=== PATIENT | male | born 1935 | race Caucasian/White ===

== ENCOUNTER 2018-01-08 12:18 | Inpatient (IN) | payer MEDICARE ==
--- NOTE | 2018-01-08 12:55 | ED ---
Abdominal Pain/Male - HPI Summary HPI Summary: This is bob Chadwick documenting for attending Harshad Mejia MD. This patient is a 82 year old M presenting to [facility] accompanied by two women with a chief complaint of worsening abd pain that started yesterday at 10:00AM. The patient rates the pain 4/10 in severity. Patient reports nausea, vomiting, back pain, and less frequent BM. Patient denies CP, diarrhea, excess flatulence , GARCIA, cough, or rhinorrhea. Pts family reports that he had an experimental surgery a year ago where they put a graft inside his aorta, and if it leaks it causes many of the symptoms he is currently having. Pt normally has a hernia binder, but he has not used it for the past 3 days. Pt reports he usually has back pain when lying down. A woman in the pts home recently traveled to [place]. PMHX multiple hernias, AAA, diverticulitis, left eye blindness. Latex allergy. Pt was born with one working kidney, the other is present. - History of Current Complaint Chief Complaint: EDAbdPain Stated Complaint: ABD PAIN Time Seen by Provider: 01/08/18 12:39 Hx Obtained From: Patient, Family/Pharmaceutical Operator Onset/Duration: Sudden Onset, Lasting Days - 2 Timing: Constant Severity Initially: Moderate Severity Currently: Moderate Pain Intensity: 4 Pain Scale Used: 0-10 Numeric Location: Diffuse Aggravating Factor(s): Other: - lying down Alleviating Factor(s): Position Associated Signs And Symptoms: Positive: Back Pain, Nausea, Vomiting. Negative : Cough, Chest Pain, Diarrhea - Allergies/Home Medications Allergies/Adverse Reactions: Allergies Allergy/AdvReac Type Severity Reaction Status Date / Time latex Allergy Rash Verified 01/08/18 14:59 Home Medications: Home Medications Aspirin EC TAB* [Ecotrin EC Low Dose 81 MG*] 81 mg PO MOWEFR 01/08/18 [History Confirmed 01/08/18] Atorvastatin* [Lipitor*] 80 mg PO DAILY 01/08/18 [History Confirmed 01/08/18] Digoxin TAB* [Lanoxin TAB*] 0.125 mg PO DAILY 01/08/18 [History Confirmed ] Furosemide TAB* [Lasix TAB*] 20 mg PO DAILY 01/08/18 [History Confirmed 01/08/18 ] Gabapentin TAB(NF) [Neurontin 600 mg TAB(NF)] 1,200 mg PO DAILY 01/08/18 [ History Confirmed 01/08/18] Ketoconazole 2 % TOPICAL DAILY 01/08/18 [History Confirmed 01/08/18] dilTIAZem HCl [Diltiazem 24Hr ER] 180 mg PO DAILY 01/08/18 [History Confirmed ] PMH/Surg Hx/FS Hx/Imm Hx Endocrine/Hematology History: Denies: Hx Diabetes, Hx Thyroid Disease Cardiovascular History: Reports: Hx Hypertension - ON MEDICATION, Hx Pacemaker/ ICD, Other Cardiovascular Problems/Disorders - A-fib, pacemaker Respiratory History: Reports: Hx Chronic Obstructive Pulmonary Disease (COPD) - Emphyzema, Hx Sleep Apnea - EARLY , Other Respiratory Problems/Disorders - EMPHYSEMA Denies: Hx Asthma GI History: Reports: Hx Diverticulosis, Other GI Disorders - diverticulitis Denies: Hx Ulcer History: Reports: Other Problems/Disorders - RIGHT KIDNEY ONLY FUNCTIONINGT KIDNEY Musculoskeletal History: Reports: Hx Arthritis - BILATERAL FEET AND HAND Sensory History: Reports: Hx Cataracts, Hx Contacts or Glasses - GLASSES Denies: Hx Hearing Aid Opthamlomology History: Reports: Hx Cataracts, Hx Contacts or Glasses - GLASSES Neurological History: Reports: Hx Migraine - AGE 18, Hx Transient Ischemic Attacks (TIA) - 6216-1213 - Cancer History Cancer Type, 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 AAA REPAIR. Hx Anesthesia Reactions: No - Immunization History Date of Tetanus Vaccine: Unk Date of Influenza Vaccine: Fall 2013 Infectious Disease History: No Infectious Disease History: Denies: Hx Hepatitis, Hx Human Immunodeficiency Virus (HIV), Hx Shingles, Hx Tuberculosis, History Other Infectious Disease, Traveled Outside the [place] in Last 30 Days - Family History Known Family History: Positive: Renal Disease - one kidney - Social History Alcohol Use: None Alcohol Amount: WINE Hx Substance Use: No Substance Use Type: Reports: None Hx Tobacco Use: No - quit 20 yrs ago, smoked 3ppd for 45 yrs Smoking Status (MU): Former Smoker Type: Cigarettes Review of Systems Negative: Nasal Discharge Negative: Chest Pain Negative: Cough Positive: Abdominal Pain - diffuse, Vomiting, Nausea. Negative: Diarrhea Positive: Other - back pain Negative: Headache All Other Systems Reviewed And Are Negative: Yes Physical Exam - Summary Physical Exam Summary: Appearance: Well-appearing, Well-nourished. Skin: Warm, dry, no obvious rash Eyes: sclera anicteric, no conjunctival pallor ENT: mucous membranes moist, pharynx appears normal Neck: Supple, nontender Respiratory: Clear to auscultation, no signs of respiratory distress Cardiovascular: Normal S1, S2. No murmurs. Normal distal pulses in tibial and radial bilaterally. Abdomen: Soft, normal active bowel sounds present. Generalized tenderness. Large ventral hernias on the left side. Musculoskeletal: Normal, Strength/ROM Intact Neurological: A&Ox3, awake and alert, mentation is normal, speech is fluent and appropriate Psychiatric: affect is normal, does not appear anxious or depressed Triage Information Reviewed: Yes Vital Signs On Initial Exam: Initial Vitals Temp Pulse Resp BP Pulse Ox 98 F 94 20 162/100 96 01/08/18 12:23 01/08/18 12:23 01/08/18 12:23 01/08/18 12:23 01/08/18 12:23 Vital Signs Reviewed: Yes Diagnostics - Vital Signs Vital Signs Temp Pulse Resp BP Pulse Ox 01/08/18 12:23 98 F 94 20 162/100 96 - Laboratory Result Diagrams: 01/08/18 13:14 01/08/18 14:23 Lab Statement: Any lab studies that have been ordered have been reviewed, and results considered in the medical decision making process. - CT CTA Chest/Abd/Pel CT Interpretation Completed By: Radiologist - 1. Abdominal aortic aneurysm measuring 5.2 x 5.9 cm in maximum axial dimension, not significantly changed since the most recent CT examination dated July 06, 2015. In the interval the patient has undergone endograft stent placement. Considering differences in technique from the preoperative CT examination this appears to be stable. There is no definite evidence of endoleak. 2. Pathologically dilated loops of proximal small bowel measuring up to 4 cm in diameter with appearance of fecalization of the intraluminal contents. There is a midline abdominal hernia containing peritoneal fat. At the time of image acquisition there is no bowel extending into the hernia but this could be reduced at the time of image acquisition in the supine position. Please correlate to physical exam findings of a reducible hernia. 3. Additional chronic, degenerative and iatrogenic findings described in the body the report. ED Physician reviewed this report - EKG 12:54 Cardiac Rate: Bradycardia EKG Rhythm: Atrial Fibrillation - 111 bpm EKG Interpretation: inferior Q waves, no ischemic changes Abdominal Pain Fem Course/Dx - Diagnoses Provider Diagnoses: Small bowel obstruction - Provider Notifications Discussed Care Of Patient With: Zeinab Foy Time Discussed With Above Provider: 16:15 Instructed by Provider To: Admit As Inpatient Discharge - Sign-Out/Discharge Documenting (check all that apply): Patient Departure - Discharge Plan Condition: Stable Disposition: ADMITTED TO [facility] - Billing Disposition and Condition Condition: STABLE Disposition: Admitted to [facility]
[2018-01-08 13:32] LABS: ABS Basophils 0.1 10^3/ul (0-0.2); ABS Eosinophils 0.1 10^3/ul (0-0.6); ABS Lymphocytes 0.6 10^3/ul (1.0-4.8); ABS Monocytes 0.6 10^3/ul (0-0.8); ABS Neutrophils 8.4 10^3/ul (1.5-7.7); ABS Nucleated RBC 0 10^3/ul; Eosinophil % 0.6 % (0-6); Hematocrit 54 % (42-52); Hemoglobin 18.5 g/dl (14.0-18.0); Mean Corpuscular HGB Conc 35 g/dl (31-36); Mean Corpuscular Hemoglobin 32 pg (27-31); Mean Corpuscular Volume 92 fL (80-94); Mean Platelet Volume 10.1 um3 (7.4-10.4); Nucleated Red Blood Cells % 0.1; Platelet Count 166 10^3/ul (150-450); Red Blood Count 5.82 10^6/ul (4.00-5.40); Red Cell Distribution Width 16 % (10.5-15); White Blood Count 9.8 10^3/ul (3.5-10.8)
[2018-01-08 13:51] LABS: EGFR Non-African American 46.7 (>60)
[2018-01-08] MEDS ORDERED: Iodixanol* (CONTRAST) 320 MG/ML 100 ML SDV IV ONE (14:04)
[2018-01-08] MEDS ORDERED: NS 0.9% 1000 ML* 1,000 ML IV ONE (14:06)
[2018-01-08] MEDS ORDERED: Acetaminophen TAB* 325 MG PO ONE (14:44)
--- NOTE | 2018-01-08 15:44 | RAD ---
STUDY: CT angiography of the chest, abdomen and pelvis. INDICATION: Abdominal pain in a patient with a history of abdominal aortic stent graft and sigmoidectomy. COMPARISON: CT of the abdomen and pelvis dated July 06, 2015 TECHNIQUE: Multidetector CT angiography of the chest, abdomen and pelvis were obtained from the lung apices to the ischial tuberosities after the intravenous injection of 100 mL. Reformats were created in the coronal and sagittal planes. 3-D vascular imaging was created from the source images and reviewed as well. ANGIOGRAPHIC FINDINGS: There is calcification of the coronary arteries and aortic ring. Measure the level of the right mainstem pulmonary artery, the ascending aorta measures 4 x 4.4 cm in the axial plane and the descending thoracic aorta measures 3.2 x 3.6 cm in the axial plane. There is curvature due to uncoiling in the thoracic aorta. There is mixed attenuation atherosclerosis at the arch of the aorta causing approximately 50% degree stenosis at the left subclavian artery. There is an aortic stent graft that begins above the level of the radha of the diaphragm. This extends into bilateral common iliac stents. The patient's infrarenal abdominal aortic aneurysm measures 5.2 x 5.8 cm and greatest axial dimension. On the most recent CT examination the aneurysm measures 5.4 x 5.7 cm. There are stents seen at the superior mesenteric artery and right renal artery that appear to be patent. The patient appears to be status post right common femoral endarterectomy as there is interval decrease in the degree of calcified atherosclerosis compared to the previous CT examination. 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 NON ANGIOGRAPHIC FINDINGS: Chest: The lungs are clear. There are no large pleural effusions. There is no mediastinal or hilar lymphadenopathy. The heart is grossly normal in appearance. Abdomen & Pelvis: The liver, spleen, pancreas and adrenal glands are grossly normal in appearance. The gallbladder is normal. The right kidney is normal in appearance without focal mass, calcification or signs of hydronephrosis. The left kidney is atrophic. In the left hemiabdomen there is multiple loops of dilated small bowel exhibiting air-fluid levels measuring up to 4.2 cm in diameter (coronal image 45 and axial image 179). There is fecalization of the small bowel contents at these areas of dilatation. More distally there is gas and stool seen throughout the colon. There are innumerable distal colonic diverticula but none exhibit focal inflammatory change characteristic of diverticulitis. Surgical material is seen at the sigmoid colon consistent with the patient's reported history. There is a midline abdominal hernia that contains peritoneal fat at the time of image acquisition but there are loops of bowel abutting the hernia. There is no small or large bowel herniation at the time of image acquisition. There is no gross retroperitoneal or mesenteric lymphadenopathy. The pelvic viscera is normal in appearance. Multilevel degenerative changes of the thoracic and lumbar spine include loss of intervertebral disc height.There are no sinister bone lesions. IMPRESSION: 1. Abdominal aortic aneurysm measuring 5.2 x 5.9 cm in maximum axial dimension, not significantly changed since the most recent CT examination dated July 06, 2015. In the interval the patient has undergone endograft stent placement. Considering differences in technique from the preoperative CT examination this appears to be stable. There is no definite evidence of endoleak. 2. Pathologically dilated loops of proximal small bowel measuring up to 4 cm in diameter with appearance of fecalization of the intraluminal contents. There is a midline abdominal hernia containing peritoneal fat. At the time of image acquisition there is no bowel extending into the hernia but this could be reduced at the time of image acquisition in the supine position. Please correlate to physical exam findings of a reducible hernia. 3. Additional chronic, degenerative and iatrogenic findings described in the body the report.
[2018-01-08] MEDS ORDERED: NS 0.9% 1000 ML* 2,000 ML IV ONE (16:17)
--- NOTE | 2018-01-08 17:31 | RAD ---
INDICATION: Nasogastric tube placement COMPARISON: Most recent comparison chest x-rays dated January 04, 2015 TECHNIQUE: Single AP portable view of the chest was obtained. FINDINGS: Image quality is compromised due to the relative inferiority of a portable chest x-ray. Stable postsurgical changes include a right upper chest cardiac pacemaker with 2 leads overlying the heart and partially visualized abdominal aortic stent graft. There is been interval placement of a gastric tube overlying the midline mediastinum with the tip terminating overlying the gastric fundus. There is calcification overlying the arch of the aorta similar appearance to the prior chest x-ray. The lungs are grossly clear. There is no evidence of a large pleural effusion. Visualized bones are normal for the patient's age. IMPRESSION: Interval placement of a nasogastric tube with the tip overlying the air-filled gastric fundus.
[2018-01-08] MEDS: Digoxin IV* 0.5 MG/2 ML AMP (0.25 MG/ML) IV SLOW PU SCH (18:22)
[2018-01-08] MEDS: Diltiazem DRIP* 100 MG/100 ML ADDV.BAG IVPB SCH (18:44)
[2018-01-08] MEDS: NS 0.9% 1000 ML* 1,000 ML IV SCH (20:39)
[2018-01-08] MEDS ORDERED: hydrALAZINE IV* 20 MG/ML VIAL IV SLOW PU PRN (21:55)
[2018-01-08] MEDS: Heparin VIAL(*) 5000 UNITS/ML VIAL (FIVE THOUSAND) SUBCUT SCH (22:09)
--- NOTE | 2018-01-08 22:28 | HP ---
CC: Dr. Iliana Malcolm * HISTORY AND PHYSICAL: DATE OF ADMISSION: 01/08/18 PRIMARY CARE PROVIDER: Dr. Iliana Malcolm. ATTENDING PHYSICIAN: Dr. Zeinab Foy * (dictated by Reina Martin NP). CHIEF COMPLAINT: Abdominal pain. HISTORY OF PRESENT ILLNESS: Mr. Alfaro is an 82-year-old male with past medical history significant for paroxysmal atrial fibrillation, hypertension, diverticulosis, hyperlipidemia, COPD, neuropathy, chronic diastolic heart failure, chronic kidney disease stage 3, left eye blindness, embolic CVA and history of bladder cancer treated with BCG treatments, who states that he was in his usual state of health when yesterday morning, he developed abdominal pain. This was accompanied by nausea, vomiting, back pain, and decrease in bowel movements. The patient states he moved his bowels yesterday morning and has not passed flatus in 1 day. He states that he was able to eat breakfast this morning as the abdominal discomfort was not enough to cause him not to eat and he ate and drank yesterday. He denies any fevers, chills, chest pain, palpitations. He reports that his abdominal pain started as a dull pain and moved to a sharp pain. He reports vomiting bile. He denies any urinary symptoms, dizziness, or lightheadedness. Due to his symptoms, he presented to the emergency room for further evaluation of symptoms. While in the emergency room, he received Tylenol, 1 L of saline. He had a chest , abdomen, and pelvis CTA as his family was told to be on the watch out for these symptoms after his history of aortic stent graft, showing pathologically dilated loops of proximal small bowel measuring up to 4 cm in diameter with appearance of fecalization of the intraluminal contents. There is also noted to be a midline abdominal hernia containing peritoneal fat. The patient's abdominal aortic aneurysm measured 5.2 x 5.9 cm, not significantly changed from previous exam here in June 2015. Due to the findings of a small bowel obstruction, general surgery was consulted, who recommended the hospitalists admit the patient due to his significant past medical history and that they would consult on the patient. Hospitalists were asked to evaluate this patient for admission. PAST MEDICAL HISTORY: 1. Atrial fibrillation. 2. TIA. 3. Diverticulosis. 4. Hyperlipidemia. 5. COPD. 6. Chronic diastolic heart failure, the patient's family deny knowledge of this diagnosis. 7. Chronic kidney disease, stage 3. 8. Left eye blindness. 9. Embolic CVA. 10. Bladder cancer with BCG treatment. 11. Neuropathy. PAST SURGICAL HISTORY: 1. Status post colostomy and colostomy reversal. 2. Status post excision of skin lesion to the left buttock. 3. Status post pacemaker insertion. 4. Status post sigmoidectomy. 5. Status post abdominal aortic aneurysm repair. 6. Status post left carotid endarterectomy. 7. Status post right knee arthroplasty. HOME MEDICATIONS: Include: 1. Vitamin B12 1000 mcg oral daily in the evening. 2. Vitamin D 1000 units oral daily in the evening. 3. Aspirin 81 mg oral daily in the evenings on Thursday, Thursday, and Thursday. 4. Diltiazem 180 mg oral daily at bedtime. 5. Neurontin 1200 mg oral daily in the morning. 6. Digoxin 0.125 mg oral daily in the evening. 7. Furosemide 20 mg oral daily in the morning. 8. TriCor 160 mg oral daily in the evening. 9. Ketoconazole 2% topical ointment as needed daily. ALLERGIES: LATEX. FAMILY HISTORY: The patient's mother had a history of CVA and diabetes mellitus. The patient's father passed from emphysema. The patient's half sister had a history of pleurisy. SOCIAL HISTORY: The patient is a former smoker quitting approximately 20 to 25 years ago. Prior to that, he had a 3 pack a day 45 years smoking history. He denies alcohol or recreational drug use. He is retired and lives with his . His daughter, Dorota Alfaro, will be his surrogate decision maker in the event he is unable to make decisions for himself. REVIEW OF SYSTEMS: I performed an 11-point review of systems. All the pertinent positives and negatives are mentioned in the history of present illness. The remaining review of systems are negative. PHYSICAL EXAMINATION GENERAL APPEARANCE: The patient is alert, pleasant and appears to be in no acute distress. VITAL SIGNS: Temperature 98, heart rate 94, respiratory rate 20, O2 sat 96% on room air, blood pressure 162/100. HEENT: Normocephalic, atraumatic. Pupils are equal and reactive to light. Extraocular movements are intact. RESPIRATORY: There is no accessory muscle use. The lungs are clear to auscultation bilateral. CARDIOVASCULAR: Irregular rate and rhythm. S1 and S2 present. There are no murmurs, rubs, or gallops heard. ABDOMEN: Soft, nondistended. There are active bowel sounds. He has generalized tenderness. He has a large ventral hernia near a healed midline incision on the left side of his abdomen. EXTREMITIES: There is no lower extremity edema. DP and PT pulses are 2+ and symmetric. MUSCULOSKELETAL: There is no clubbing or cyanosis noted. The patient exhibits good strength in all extremities. NEUROLOGIC: The patient is alert and oriented x4. Cranial nerves II through XII are grossly intact. PSYCHOLOGICAL: The patient is calm and cooperative. SKIN: There are no rashes or abnormalities seen. DIAGNOSTIC STUDIES/LABORATORY DATA: Sodium 138, potassium 4.4, chloride 100, CO2 of 27, BUN 27, creatinine 1.44, glucose 116. White blood cell count 9.8, hemoglobin 18.5, hematocrit 54, platelet count 116. EKG shows an atrial fibrillation at a rate of 111. He has inferior Q-waves. He has T-wave inversions in V5 and 6, similar to previous EKG from 10/03/14. Chest, abdomen and pelvis CTA from today. Radiologist's impression: Abdominal aortic aneurysm measuring 5.2 x 5.9 cm at the maximal axial dimension, not significantly changed since the most recent CT examination dated 07/06/15. In the interval, the patient has undergone endograft stent placement. Considering differences in the technique from the preoperative CT examination, this appears to be stable. There is no definite evidence of Endoleak. Pathologically dilated loops of proximal small bowel measuring up to 4 cm in diameter with appearance of fecalization of the intraluminal contents. There is a midline abdominal hernia containing peritoneal fat. At the time of the image acquisition, there is no bowel extending into the hernia, but this could be reduced at the time of image acquisition in the supine position. Please correlate to physical exam findings of a reducible hernia. Additional chronic, degenerative, and iatrogenic findings described in the body of the report. Chest x-ray from today. Radiologist's impression: Interval placement of nasogastric tube with the tip overlying the air filled gastric fundus. IMPRESSION: Mr. Alfaro is an 82-year-old male with past medical history significant for atrial fibrillation, transient ischemic attack, diverticulosis, hyperlipidemia, chronic obstructive pulmonary disease, neuropathy, chronic diastolic heart failure, chronic kidney disease stage 3, left eye blindness, embolic CVA, and bladder cancer, who presented to the emergency room with complaints of abdominal pain for 1 day. He will be admitted as an observation for small bowel obstruction and atrial fibrillation with RVR. ASSESSMENT/PLAN: 1. Small bowel obstruction. The patient has evidence on his CTA of a bowel obstruction. He has had an NG tube placed while in the emergency room. We will give IV hydration, monitor him closely with his history of heart failure. General surgery is aware of the patient and will see the patient in consultation. We will continue to have the patient to be n.p.o. and keep him n.p.o. and change his medications to IV if possible. 2. Atrial fibrillation with RVR. During the time in the emergency room, the patient was noted to have a heart rate that was nonsustained up to 150s. We are going to place him on a diltiazem drip at 5 mg an hour as this will be equivalent to his home diltiazem dosing. We can titrate this if needed for increased heart rate and also transitioning his digoxin to IV. He is not currently anticoagulated after a GI bleed in the past. 3. Neuropathy. We will hold the patient's Neurontin until he is able to take p.o. 4. Carotid artery disease. The patient is status post a carotid endarterectomy. I am going to hold his aspirin while he is n.p.o. 5. Chronic diastolic heart failure. I am going to hold the patient's furosemide. He actually looks on the dry side as evidenced by polycythemia. I am going to give him some cautious IV hydration while he is n.p.o. We can consider restarting his furosemide or decreasing the IV fluids if he appears to be overloaded. He has no signs of volume overload at this time. He has no crackles and no lower extremity edema. 6. History of transient ischemic attack and cerebrovascular accident. Again, I am going to hold the patient's aspirin for now and his statins while he is n.p.o. 7. Chronic obstructive pulmonary disease. The patient has no signs of chronic obstructive pulmonary disease exacerbation at this time. He is not on any maintenance medications or as needed medications. 8. Chronic kidney disease, stage 3. The patient appears to be at his baseline creatinine. We will continue to follow his creatinine. 9. Bladder cancer. The patient was treated with BCG in the past. He should continue to follow with Urology outpatient. 10. Fluids, electrolytes, and nutrition: The patient is going to be n.p.o. 11 Code status: Full code. 12. DVT prophylaxis: He is at highest risk, will have subcu heparin and SCDs 13 Disposition: Observation. TIME SPENT: Time for this admission was approximately 60 minutes, greater than half of that was spent with the patient and his family discussing medications, past medical history, the events leading up to his arrival today and performing a physical examination. The case has been reviewed with the attending, Dr. Foy, who agrees with the plan of care. Reviewed by TRICIA AHN 01/13/18 1740 [id number]/[facility] #: [id number] MTDD
[2018-01-08 23:52] LABS: Urine Appearance Clear; Urine Blood Negative (Negative); Urine Color Yellow; Urine Ketones Negative (Negative); Urine Protein 2+(100 mg/dL) (Negative); Urine Red Blood Cell 1+(3-5/hpf) (Absent); Urine Specific Gravity 1.054 (1.010-1.030); Urine Urobilinogen Negative (Negative); Urine White Blood Cell Trace(0-5/hpf) (Absent)
[2018-01-09] MEDS: Heparin VIAL(*) 5000 UNITS/ML VIAL (FIVE THOUSAND) SUBCUT SCH ×3 (05:21→20:55)
[2018-01-09] MEDS ORDERED: PROCHLORPERAZINE INJ 5 MG/ML 2 ML VIAL IV PRN (05:26)
[2018-01-09 05:58] LABS: ABS Basophils 0 10^3/ul (0-0.2); ABS Eosinophils 0 10^3/ul (0-0.6); ABS Lymphocytes 0.7 10^3/ul (1.0-4.8); ABS Monocytes 0.7 10^3/ul (0-0.8); ABS Neutrophils 5.8 10^3/ul (1.5-7.7); ABS Nucleated RBC 0 10^3/ul; Eosinophil % 0.4 % (0-6); Hematocrit 51 % (42-52); Hemoglobin 17.6 g/dl (14.0-18.0); Lymphocyte % 9.1 % (25-47); Mean Corpuscular HGB Conc 34 g/dl (31-36); Mean Corpuscular Hemoglobin 31 pg (27-31); Mean Corpuscular Volume 92 fL (80-94); Mean Platelet Volume 10.1 um3 (7.4-10.4); Nucleated Red Blood Cells % 0.1; Platelet Count 172 10^3/ul (150-450); Red Cell Distribution Width 16 % (10.5-15); White Blood Count 7.2 10^3/ul (3.5-10.8)
[2018-01-09 06:19] LABS: EGFR Non-African American 63.1 (>60)
[2018-01-09] MEDS: NS 0.9% 1000 ML* 1,000 ML IV SCH ×2 (06:42→17:20)
--- NOTE | 2018-01-09 08:07 | PN ---
Subjective Date of Service: 01/09/18 Interval History: Patient seen and examined at bedside. Denies fever, chills, shortness of breath , chest discomfort, N/V/D. Pt states that he was able to pass some flatus overnight, but none since. Since no BM. Pt states that his abdominal pain has improved and has almost resolved. He is asking about eating but understands that he is NPO for now until the NG tube is removed. Tele: Afib, rate 70-80's. Family History: Unchanged from Admission Social History: Unchanged from Admission Past Medical History: Unchanged from Admission Objective Active Medications: Digoxin (Digoxin Iv*) 0.52953 mg IV SLOW PU 1800 NARESH Heparin Sodium (Porcine) (Heparin Vial(*)) 5,000 units SUBCUT Q8HR NARESH Hydralazine HCl (Apresoline Iv*) 5 mg IV SLOW PU Q6H PRN Reason: SBP>170 Sodium Chloride (Ns 0.9% 1000 Ml*) 1,000 mls @ 100 mls/hr IV PER RATE NARESH Diltiazem HCl (Cardizem Iv Advan*) 100 mg in 100 mls @ 5 mls/hr IVPB .PER PARAMETERS NARESH; Protocol Prochlorperazine Edisylate (Compazine Inj*) 5 mg IV Q6H PRN Reason: NAUSEA/ VOMITING Vital Signs - 8 hr 01/09/18 01/09/18 01/09/18 00:04 00:09 00:15 Temperature Pulse Rate 78 78 Respiratory 23 20 Rate Blood Pressure 162/90 151/95 (mmHg) O2 Sat by Pulse 95 94 Oximetry 01/09/18 01/09/18 01/09/18 00:30 00:45 01:00 Temperature Pulse Rate 77 75 77 Respiratory 22 22 22 Rate Blood Pressure 154/105 171/93 167/90 (mmHg) O2 Sat by Pulse 96 95 92 Oximetry 01/09/18 01/09/18 01/09/18 01:15 01:30 01:45 Temperature Pulse Rate 76 80 90 Respiratory 20 18 20 Rate Blood Pressure 152/95 153/101 153/88 (mmHg) O2 Sat by Pulse 93 96 94 Oximetry 01/09/18 01/09/18 01/09/18 02:00 02:15 02:18 Temperature Pulse Rate 78 75 79 Respiratory 21 23 22 Rate Blood Pressure 169/93 159/86 159/86 (mmHg) O2 Sat by Pulse 94 94 94 Oximetry 01/09/18 01/09/18 01/09/18 02:23 02:30 02:45 Temperature 99.5 F Pulse Rate 73 76 Respiratory 22 20 Rate Blood Pressure 171/105 159/89 (mmHg) O2 Sat by Pulse 96 94 Oximetry 01/09/18 01/09/18 01/09/18 02:46 03:00 03:15 Temperature Pulse Rate 81 81 77 Respiratory 18 18 21 Rate Blood Pressure 159/89 155/86 168/87 (mmHg) O2 Sat by Pulse 94 95 95 Oximetry 01/09/18 01/09/18 01/09/18 03:18 03:30 03:40 Temperature 99.7 F Pulse Rate 75 70 Respiratory 17 21 Rate Blood Pressure 168/87 160/102 (mmHg) O2 Sat by Pulse 95 94 Oximetry 01/09/18 01/09/18 01/09/18 03:45 04:00 04:15 Temperature Pulse Rate 74 79 79 Respiratory 20 18 16 Rate Blood Pressure 156/93 166/101 154/104 (mmHg) O2 Sat by Pulse 92 95 95 Oximetry 01/09/18 01/09/18 01/09/18 04:30 04:45 05:00 Temperature Pulse Rate 77 68 78 Respiratory 14 21 18 Rate Blood Pressure 150/95 153/111 172/97 (mmHg) O2 Sat by Pulse 95 95 94 Oximetry 01/09/18 01/09/18 01/09/18 05:15 05:30 05:45 Temperature Pulse Rate 72 87 73 Respiratory 12 18 15 Rate Blood Pressure 156/90 151/104 156/87 (mmHg) O2 Sat by Pulse 95 96 95 Oximetry 01/09/18 01/09/18 01/09/18 06:00 06:01 06:20 Temperature Pulse Rate 88 82 77 Respiratory 19 21 17 Rate Blood Pressure 112/88 164/136 (mmHg) O2 Sat by Pulse 94 94 95 Oximetry 01/09/18 01/09/18 06:30 06:45 Temperature Pulse Rate 75 78 Respiratory 18 19 Rate Blood Pressure 153/90 126/62 (mmHg) O2 Sat by Pulse 96 97 Oximetry Oxygen Devices in Use Now: None Appearance: NAD, laying in bed Ears/Nose/Mouth/Throat: Mucous Membranes Moist Respiratory: Symmetrical Chest Expansion and Respiratory Effort, Clear to Auscultation Cardiovascular: NL Sounds; No Murmurs; No JVD, RRR Abdominal: NL Sounds; No Tenderness; No Distention, - - Ventral hernia to left side of ABD Extremities: No Edema Skin: No Rash or Ulcers Neurological: Alert and Oriented x 3, NL Muscle Strength and Tone Lines/Tubes/Other Access: Clean, Dry and Intact Peripheral IV - x 2, site benign Nutrition: Taking PO's Result Diagrams: 01/09/18 05:29 01/09/18 05:29 Microbiology and Other Data: Microbiology 01/08/18 18:30 Nasal Screen MRSA (PCR) - Final Nasal Mrsa Not Detected Assess/Plan/Problems-Billing Assessment: Mr. Alfaro is an 82 yo male with PMH significant for P afib, HTN, diverticulosis, HLD, COPD, neuropathy, chronic diastolic heart failure, CKD stage 3, left eye blindness, embolic CVA and bladder cancer who presented to the emergency room with complaints of abdominal pain. - Patient Problems (1) Small bowel obstruction Code(s): K56.609 - UNSP INTESTNL OBST, UNSP TO PARTIAL VERSUS COMPLETE OBST SNOMED Code(s): 247936476 Comment: - Suspect secondary to adhesions d/t multiple ABD surgeries in the past - General surgery consult, pending - Continue NG tube, NPO, and IVFs (will increase IVF rate) (2) A-fib Code(s): I48.91 - UNSPECIFIED ATRIAL FIBRILLATION SNOMED Code(s): 27633658 Comment: - With RVR on admission - Continue IV diltiazem gtt and IV digoxin - Not anticoagulated d/t history of GI bleed (3) CKD (chronic kidney disease) stage 3, GFR 30-59 ml/min Code(s): N18.3 - CHRONIC KIDNEY DISEASE, STAGE 3 (MODERATE) SNOMED Code(s): 853425591 Comment: - Creatinine has improved to better than baseline with IVFs overnight - Continue to monitor labs and avoid nephrotoxic agents (4) Chronic diastolic (congestive) heart failure Code(s): I50.32 - CHRONIC DIASTOLIC (CONGESTIVE) HEART FAILURE SNOMED Code(s) : 723823064 Comment: - No signs of exacerbation at this time - Continue daily weights and strict I+O's - Continue to hold furosemide for now (5) COPD (chronic obstructive pulmonary disease) Code(s): J44.9 - CHRONIC OBSTRUCTIVE PULMONARY DISEASE, UNSPECIFIED SNOMED Code(s): 83132479 Comment: - No signs of acute exacerbation at this time - He is not currently on any medications at home (6) Carotid artery disease Code(s): I77.9 - DISORDER OF ARTERIES AND ARTERIOLES, UNSPECIFIED SNOMED Code( s): 136401465 Comment: - S/P carotid endartetectomy - Resume ASA and statin when able to take PO (7) Blind left eye Code(s): H54.42 - BLINDNESS, LEFT EYE, NORMAL VISION RIGHT EYE * DO NOT USE * SNOMED Code(s): 163756635 (8) History of diverticulosis Code(s): Z87.19 - PERSONAL HISTORY OF OTHER DISEASES OF THE DIGESTIVE SYSTEM SNOMED Code(s): 836863080 (9) Hx of abdominal aortic aneurysm Code(s): Z86.79 - PERSONAL HISTORY OF OTHER DISEASES OF THE CIRCULATORY SYSTEM SNOMED Code(s): 168599226 Comment: - S/P endografting - Stable on CT scan (10) Hx of bladder cancer Code(s): Z85.51 - PERSONAL HISTORY OF MALIGNANT NEOPLASM OF BLADDER SNOMED Code(s): 514039824 Comment: - S/P BCG treatment - Continue to follow with urology outpatient (11) Neuropathy Code(s): G62.9 - POLYNEUROPATHY, UNSPECIFIED SNOMED Code(s): 199180551 Comment: - Resume gapapentin when able to take PO (12) Hx of hyperlipidemia Code(s): Z86.39 - PERSONAL HISTORY OF ENDO, NUTRITIONAL AND METABOLIC DISEASE SNOMED Code(s): 328905066 Comment: - Resume statin when able to take PO (13) Hx-TIA (transient ischemic attack) Comment: - Also history of cerebral embolic event - Resume ASA and statin when able to take PO (14) Hx of cardiac pacemaker Code(s): Z95.0 - PRESENCE OF CARDIAC PACEMAKER SNOMED Code(s): 377081767 (15) DVT prophylaxis Code(s): CBD7035 - SNOMED Code(s): 355215110 Comment: - Continue SQ heparin and SCDs (16) Full code status Code(s): Z78.9 - OTHER SPECIFIED HEALTH STATUS SNOMED Code(s): 066331678 Status and Disposition: OBV. Discharge to home when medically stable.
--- NOTE | 2018-01-09 08:51 | CONSULT ---
Consult Consult: Surgery Consult Asked to evaluate a pt. with CT suggestive of SBO. Mr. Alfaro is an 82 y.o. male who reports that the day before yesterday he had abdominal pain and vomiting that came on that day. He denies feeling nauseated before the vomiting. He denies fever or chills. He had no episodes of diarrhea preceding the vomiting. He had not had a BM or passed but a very small amount of flatus during the day before admission. He denies dysuria. He came to the ER and had a CT showing some dilated loops of SB, a very distended stomach, and gas and stool into the rectum. He has been admitted for SBO and given an NGT and IV hydration as well as bowel rest. He says his pain is "down to a 1" this morning. PMHx: HTN, aneurysm repaired with "experimental" surgery, diverticulitis s/p sigmoid resection 1987 with subsequent operations for reanastomosis and then bleeding; known abdominal wall hernia, "mini-strokes", s/p CEA, blindness left eye; afib, "only one functioning kidney", "a touch of emphysema", bladder cancer treated with BCG. Meds: see med rec, has been on coumadin in past, not currently ROS: neg except as noted in PMHx ALL: latex SH: former smoker quit 25 years ago after 45 years of up to 3 ppd; neg EtOH, neg IVDA FH: DM, CVA mother, emphysema father PE: general: WDWN elderly male in NAD Vital Signs 01/08/18 01/08/18 01/08/18 12:23 12:34 13:00 Temperature 98 F Pulse Rate 94 98 83 Respiratory 20 25 Rate Blood Pressure 162/100 193/106 (mmHg) O2 Sat by Pulse 96 93 94 Oximetry 01/08/18 01/08/18 01/08/18 13:01 13:04 13:34 Temperature Pulse Rate 107 97 90 Respiratory 15 19 25 Rate Blood Pressure 185/142 167/109 139/94 (mmHg) O2 Sat by Pulse 94 93 92 Oximetry 01/08/18 01/08/18 01/08/18 14:00 14:05 15:00 Temperature Pulse Rate 93 96 86 Respiratory 21 17 18 Rate Blood Pressure 160/111 (mmHg) O2 Sat by Pulse 92 91 92 Oximetry 01/08/18 01/08/1818 15:05 15:35 16:00 Temperature Pulse Rate 86 99 113 Respiratory 11 12 23 Rate Blood Pressure 177/143 184/100 (mmHg) O2 Sat by Pulse 92 90 88 Oximetry 01/08/18 01/08/18 01/08/18 16:04 16:15 16:34 Temperature Pulse Rate 86 81 92 Respiratory 26 20 24 Rate Blood Pressure 189/126 164/111 183/112 (mmHg) O2 Sat by Pulse 73 94 91 Oximetry 01/08/18 01/08/18 01/08/18 17:00 17:04 17:34 Temperature Pulse Rate Respiratory 15 21 21 Rate Blood Pressure 149/101 135/110 (mmHg) O2 Sat by Pulse Oximetry 01/08/18 01/08/18 01/08/18 17:54 18:00 18:01 Temperature 98.1 F 98.7 F Pulse Rate 89 90 109 Respiratory 19 18 Rate Blood Pressure 131/88 158/107 149/96 (mmHg) O2 Sat by Pulse 93 95 95 Oximetry 01/08/18 01/08/18 01/08/18 18:19 18:32 18:45 Temperature Pulse Rate 82 79 89 Respiratory 22 19 22 Rate Blood Pressure 121/107 153/107 158/99 (mmHg) O2 Sat by Pulse 92 94 92 Oximetry 01/08/18 01/08/18 01/08/18 19:00 19:15 19:30 Temperature Pulse Rate 89 87 87 Respiratory 20 21 23 Rate Blood Pressure 157/120 176/102 165/121 (mmHg) O2 Sat by Pulse 93 92 94 Oximetry 01/08/18 01/08/18 01/08/18 19:45 19:54 20:00 Temperature 100.5 F Pulse Rate 87 Respiratory 22 18 Rate Blood Pressure 172/102 (mmHg) O2 Sat by Pulse 94 Oximetry 01/08/18 01/08/18 01/08/18 20:01 20:15 20:30 Temperature Pulse Rate 82 87 79 Respiratory 20 22 19 Rate Blood Pressure 165/94 156/91 157/105 (mmHg) O2 Sat by Pulse 94 92 95 Oximetry 01/08/18 01/08/18 01/08/18 20:45 21:00 21:15 Temperature Pulse Rate 80 76 77 Respiratory 21 20 23 Rate Blood Pressure 167/93 161/106 179/104 (mmHg) O2 Sat by Pulse 93 93 94 Oximetry 01/08/18 01/08/18 01/08/18 21:30 21:45 22:00 Temperature Pulse Rate 80 80 82 Respiratory 21 21 23 Rate Blood Pressure 178/108 172/115 166/115 (mmHg) O2 Sat by Pulse 94 92 93 Oximetry 01/08/18 01/08/18 01/08/18 22:15 22:30 22:45 Temperature Pulse Rate 85 84 84 Respiratory 21 14 24 Rate Blood Pressure 167/103 160/100 161/93 (mmHg) O2 Sat by Pulse 95 91 94 Oximetry 01/08/18 01/08/18 01/08/18 23:00 23:15 23:31 Temperature Pulse Rate 76 88 97 Respiratory 22 17 21 Rate Blood Pressure 168/106 155/105 158/99 (mmHg) O2 Sat by Pulse 95 95 95 Oximetry 01/08/18 01/09/18 01/09/18 23:45 00:00 00:04 Temperature Pulse Rate 78 76 78 Respiratory 20 18 23 Rate Blood Pressure 169/104 162/98 (mmHg) O2 Sat by Pulse 94 94 95 Oximetry 01/09/18 01/09/18 01/09/18 00:09 00:15 00:30 Temperature Pulse Rate 78 77 Respiratory 20 22 Rate Blood Pressure 162/90 151/95 154/105 (mmHg) O2 Sat by Pulse 94 96 Oximetry 01/09/18 01/09/18 01/09/18 00:45 01:00 01:15 Temperature Pulse Rate 75 77 76 Respiratory 22 22 20 Rate Blood Pressure 171/93 167/90 152/95 (mmHg) O2 Sat by Pulse 95 92 93 Oximetry 01/09/18 01/09/18 01/09/18 01:30 01:45 02:00 Temperature Pulse Rate 80 90 78 Respiratory 18 20 21 Rate Blood Pressure 153/101 153/88 169/93 (mmHg) O2 Sat by Pulse 96 94 94 Oximetry 01/09/18 01/09/18 01/09/18 02:15 02:18 02:23 Temperature 99.5 F Pulse Rate 75 79 Respiratory 23 22 Rate Blood Pressure 159/86 159/86 (mmHg) O2 Sat by Pulse 94 94 Oximetry 01/09/18 01/09/18 01/09/18 02:30 02:45 02:46 Temperature Pulse Rate 73 76 81 Respiratory 22 20 18 Rate Blood Pressure 171/105 159/89 159/89 (mmHg) O2 Sat by Pulse 96 94 94 Oximetry 01/09/18 01/09/18 01/09/18 03:00 03:15 03:18 Temperature Pulse Rate 81 77 75 Respiratory 18 21 17 Rate Blood Pressure 155/86 168/87 168/87 (mmHg) O2 Sat by Pulse 95 95 95 Oximetry 01/09/18 01/09/18 01/09/18 03:30 03:40 03:45 Temperature 99.7 F Pulse Rate 70 74 Respiratory 21 20 Rate Blood Pressure 160/102 156/93 (mmHg) O2 Sat by Pulse 94 92 Oximetry 01/09/18 01/09/18 01/09/18 04:00 04:15 04:30 Temperature Pulse Rate 79 79 77 Respiratory 18 16 14 Rate Blood Pressure 166/101 154/104 150/95 (mmHg) O2 Sat by Pulse 95 95 95 Oximetry 01/09/18 01/09/18 01/09/18 04:45 05:00 05:15 Temperature Pulse Rate 68 78 72 Respiratory 21 18 12 Rate Blood Pressure 153/111 172/97 156/90 (mmHg) O2 Sat by Pulse 95 94 95 Oximetry 01/09/18 01/09/18 01/09/18 05:30 05:45 06:00 Temperature Pulse Rate 87 73 88 Respiratory 18 15 19 Rate Blood Pressure 151/104 156/87 (mmHg) O2 Sat by Pulse 96 95 94 Oximetry 01/09/18 01/09/18 01/09/18 06:01 06:20 06:30 Temperature Pulse Rate 82 77 75 Respiratory 21 17 18 Rate Blood Pressure 112/88 164/136 153/90 (mmHg) O2 Sat by Pulse 94 95 96 Oximetry 01/09/18 01/09/18 01/09/18 06:45 07:00 07:16 Temperature Pulse Rate 78 85 80 Respiratory 19 17 19 Rate Blood Pressure 126/62 152/96 153/103 (mmHg) O2 Sat by Pulse 97 93 93 Oximetry 01/09/18 01/09/18 01/09/18 07:31 07:46 08:00 Temperature Pulse Rate 83 67 79 Respiratory 17 20 29 Rate Blood Pressure 129/88 157/94 166/98 (mmHg) O2 Sat by Pulse 95 93 95 Oximetry 01/09/18 01/09/18 08:16 08:30 Temperature Pulse Rate 76 76 Respiratory 16 18 Rate Blood Pressure 152/90 164/90 (mmHg) O2 Sat by Pulse 95 92 Oximetry HEENT: anicteric sclerae, dry oral mucosa, neg. cervical adenopathy lungs: clear to ausc. heart: irreg. abd: good BS, well healed midline scar, soft, non-tender, an upper abd hernia is easily reducible, no masses felt rectal: no hemorrhoids, no masses felt, brown stool in vault. ext: neg edema Intake & Output 01/08/18 01/09/18 01/09/18 22:59 06:59 14:59 Intake Total 3169.9 1000 926 Output Total 2700 1400 Balance 469.9 -400 926 Weight 172 lb 170 lb 13.732 oz Intake: IV Fluids 2153 1000 926 NS (0.9%) 153 926 IVPB 1000 Medicated IV 16.9 GEN - Diltiazem/Cardizem 16.9 Output: NG Tube Drainage Amount 2300 650 Urine 750 Emesis 400 Other: Estimated Void Medium Laboratory Results - last 24 hr 01/08/18 01/08/18 01/08/18 13:14 13:20 13:20 WBC 9.8 RBC 5.82 H Hgb 18.5 H Hct 54 H MCV 92 MCH 32 H MCHC 35 RDW 16 H Plt Count 166 MPV 10.1 Neut % (Auto) 86.0 H Lymph % (Auto) 6.0 L [place] % (Auto) 6.6 Eos % (Auto) 0.6 Baso % (Auto) 0.8 Absolute Neuts (auto) 8.4 H Absolute Lymphs (auto) 0.6 L Absolute Monos (auto) 0.6 Absolute Eos (auto) 0.1 Absolute Basos (auto) 0.1 Absolute Nucleated RBC 0 Nucleated RBC % 0.1 Sodium 138 Potassium TNP Chloride 100 L Carbon Dioxide 27 Anion Gap 11 BUN 27 H Creatinine 1.44 H Est GFR ( Amer) 56.6 Est GFR (Non-Af Amer) 46.7 BUN/Creatinine Ratio 18.8 Glucose 116 H Lactic Acid 1.4 Calcium 10.4 H Total Bilirubin 1.40 H AST TNP ALT 14 Alkaline Phosphatase 88 C-Reactive Protein 11.62 H Total Protein 7.4 Albumin 4.3 Globulin 3.1 Albumin/Globulin Ratio 1.4 Lipase 54 Urine Color Urine Appearance Urine pH Ur Specific [place] Urine Protein Urine Ketones Urine Blood Urine Nitrate Urine Bilirubin Urine Urobilinogen Ur Leukocyte Esterase Urine WBC (Auto) Urine RBC (Auto) Ur Squamous Epith Cells Urine Bacteria Urine Glucose Urine Ascorbic Acid 01/08/18 01/08/18 01/09/18 14:23 23:24 05:29 WBC 7.2 RBC 5.60 H Hgb 17.6 Hct 51 MCV 92 MCH 31 MCHC 34 RDW 16 H Plt Count 172 MPV 10.1 Neut % (Auto) 80.4 Lymph % (Auto) 9.1 L [place] % (Auto) 9.8 H Eos % (Auto) 0.4 Baso % (Auto) 0.3 Absolute Neuts (auto) 5.8 Absolute Lymphs (auto) 0.7 L Absolute Monos (auto) 0.7 Absolute Eos (auto) 0 Absolute Basos (auto) 0 Absolute Nucleated RBC 0 Nucleated RBC % 0.1 Sodium Potassium 4.4 Chloride Carbon Dioxide Anion Gap BUN Creatinine Est GFR ( Amer) Est GFR (Non-Af Amer) BUN/Creatinine Ratio Glucose Lactic Acid Calcium Total Bilirubin AST 21 ALT Alkaline Phosphatase C-Reactive Protein Total Protein Albumin Globulin Albumin/Globulin Ratio Lipase Urine Color Yellow Urine Appearance Clear Urine pH 7.0 Ur Specific [place] 1.054 H Urine Protein 2+(100 mg/dl) A Urine Ketones Negative Urine Blood Negative Urine Nitrate Negative Urine Bilirubin Negative Urine Urobilinogen Negative Ur Leukocyte Esterase Negative Urine WBC (Auto) Trace(0-5/hpf) Urine RBC (Auto) 1+(3-5/hpf) A Ur Squamous Epith Cells Present A Urine Bacteria Absent Urine Glucose Negative Urine Ascorbic Acid * A 01/09/18 05:29 WBC RBC Hgb Hct MCV MCH MCHC RDW Plt Count MPV Neut % (Auto) Lymph % (Auto) [place] % (Auto) Eos % (Auto) Baso % (Auto) Absolute Neuts (auto) Absolute Lymphs (auto) Absolute Monos (auto) Absolute Eos (auto) Absolute Basos (auto) Absolute Nucleated RBC Nucleated RBC % Sodium 142 Potassium 3.9 Chloride 105 Carbon Dioxide 28 Anion Gap 9 BUN 21 Creatinine 1.11 Est GFR ( Amer) 76.4 Est GFR (Non-Af Amer) 63.1 BUN/Creatinine Ratio 18.9 Glucose 106 H Lactic Acid Calcium 9.4 Total Bilirubin AST ALT Alkaline Phosphatase C-Reactive Protein Total Protein Albumin Globulin Albumin/Globulin Ratio Lipase Urine Color Urine Appearance Urine pH Ur Specific [place] Urine Protein Urine Ketones Urine Blood Urine Nitrate Urine Bilirubin Urine Urobilinogen Ur Leukocyte Esterase Urine WBC (Auto) Urine RBC (Auto) Ur Squamous Epith Cells Urine Bacteria Urine Glucose Urine Ascorbic Acid A/P: 82 y.o. with multiple medical problems, h/o multiple abdominal surgeries, now with partial SBO. He seems to be responding to conservative measures of NGT decompression, bowel rest and IV hydration. Consider additional hydration to match the NG losses. Will check AXR today to compare to yesterday's CT scan. If improved or stable will continue current therapy and repeat tomorrow.
[2018-01-09] MEDS ORDERED: NS 0.9% 1000 ML* 1,000 ML IV SCH (08:52)
--- NOTE | 2018-01-09 10:24 | RAD ---
Indication: Follow-up small bowel obstruction Flat and upright views of the abdomen demonstrates moderately distended loops of small bowel. Air-fluid levels are noted in the abdomen with moderately distended loops of small bowel. Findings are consistent with small bowel obstruction. The nasogastric tube tip is in the distal esophagus. The patient is status post aortic stent graft repair with right renal artery stent. IMPRESSION: Findings consistent with small bowel obstruction with persistent dilated stomach. Nasogastric tube is in the distal esophagus.
[2018-01-09] MEDS: Diltiazem DRIP* 100 MG/100 ML ADDV.BAG IVPB SCH (11:50)
[2018-01-09] MEDS: Digoxin IV* 0.5 MG/2 ML AMP (0.25 MG/ML) IV SLOW PU SCH (17:26)
[2018-01-10] MEDS: NS 0.9% 1000 ML* 1,000 ML IV SCH ×2 (03:22→13:13)
[2018-01-10] MEDS: Heparin VIAL(*) 5000 UNITS/ML VIAL (FIVE THOUSAND) SUBCUT SCH ×3 (05:22→20:59)
[2018-01-10 06:00] LABS: ABS Basophils 0 10^3/ul (0-0.2); ABS Eosinophils 0 10^3/ul (0-0.6); ABS Lymphocytes 0.6 10^3/ul (1.0-4.8); ABS Monocytes 0.6 10^3/ul (0-0.8); ABS Neutrophils 5.5 10^3/ul (1.5-7.7); ABS Nucleated RBC 0 10^3/ul; Hematocrit 47 % (42-52); Hemoglobin 15.7 g/dl (14.0-18.0); Mean Corpuscular HGB Conc 34 g/dl (31-36); Mean Corpuscular Hemoglobin 31 pg (27-31); Mean Corpuscular Volume 92 fL (80-94); Mean Platelet Volume 9.9 um3 (7.4-10.4); Platelet Count 152 10^3/ul (150-450); Red Blood Count 5.04 10^6/ul (4.00-5.40); Red Cell Distribution Width 16 % (10.5-15); White Blood Count 6.8 10^3/ul (3.5-10.8)
[2018-01-10 06:01] LABS: Eosinophil % 0.3 % (0-6); Lymphocyte % 9.2 % (25-47); Nucleated Red Blood Cells % 0
[2018-01-10 06:19] LABS: EGFR Non-African American 72.9 (>60)
--- NOTE | 2018-01-10 10:27 | PN ---
Progress Note - Progress Note Date of Service: 01/10/18 SOAP: Subjective: Feels much better Had several BM's yesterday and is passing flatus No abdominal pain Objective: Temp Pulse Resp BP Pulse Ox 97.8 F 73 16 156/89 96 01/10/18 07:16 01/10/18 05:55 01/10/18 08:00 01/10/18 09:55 01/10/18 05:55 Intake & Output 01/08/18 01/09/18 01/10/18 01/11/18 06:59 06:59 06:59 06:59 Intake Total 4169.9 2635 Output Total 4100 1990 200 Balance 69.9 645 -200 Weight 170 lb 13.732 oz 168 lb 14.4 oz Intake: IV Fluids 3153 2555 NS (0.9%) 153 2455 IVPB 1000 Medicated IV 16.9 80 GEN - Diltiazem/Cardizem 16.9 80 Oral 0 Output: NG Tube Drainage Amount 2950 1550 Urine 750 440 200 Emesis 400 Other: Estimated Void Medium # Bowel Movements 0 # Voids 1 PEX: Comfortable Abd is soft and non-distended. There is no tenderness, fat containing upper abdominal wall hernia reducible. Assessment: SBO-resolving Plan: D/C NGT Clear liquids-advance as tolerated and can hopefully be discharged soon.
[2018-01-10] MEDS: Diltiazem CD CAP* 180 MG PO SCH (11:35)
--- NOTE | 2018-01-10 11:45 | PN ---
Subjective Date of Service: 01/10/18 Interval History: Patient seen and examined at bedside. Denies fever, chills, shortness of breath , chest discomfort, N/V/D. He moved his bowels yesterday and is feeling much better. No BM today, but is passing flatus. Has been able to tolerate clear liquids since NG tube DC'd. Tele: Afib, rate 60-90's, intermittently paced with PVCs. Family History: Unchanged from Admission Social History: Unchanged from Admission Past Medical History: Unchanged from Admission Objective Active Medications: Aspirin (Aspirin Ec Tab*) 81 mg PO MOWEFR NARESH Atorvastatin Calcium (Lipitor*) 80 mg PO DAILY NARESH Digoxin (Lanoxin Tab*) 0.125 mg PO 1700 NARESH Diltiazem HCl (Cardizem Cd Cap*) 180 mg PO DAILY NARESH Heparin Sodium (Porcine) (Heparin Vial(*)) 5,000 units SUBCUT Q8HR NARESH Hydralazine HCl (Apresoline Iv*) 5 mg IV SLOW PU Q6H PRN Reason: SBP>170 Sodium Chloride (Ns 0.9% 1000 Ml*) 1,000 mls @ 100 mls/hr IV PER RATE NARESH Prochlorperazine Edisylate (Compazine Inj*) 5 mg IV Q6H PRN Reason: NAUSEA/ VOMITING Vital Signs - 8 hr 01/10/18 01/10/18 01/10/18 03:55 04:00 05:00 Temperature Pulse Rate 66 68 Respiratory Rate Blood Pressure 158/90 (mmHg) O2 Sat by Pulse 93 93 Oximetry 01/10/18 01/10/18 01/10/18 05:27 05:55 07:16 Temperature 97.8 F Pulse Rate 72 73 Respiratory 16 Rate Blood Pressure 167/91 158/96 (mmHg) O2 Sat by Pulse 93 96 Oximetry 01/10/18 01/10/18 01/10/18 07:55 08:00 09:55 Temperature Pulse Rate Respiratory 16 Rate Blood Pressure 160/98 156/89 (mmHg) O2 Sat by Pulse Oximetry Oxygen Devices in Use Now: None Appearance: NAD, laying in bed Ears/Nose/Mouth/Throat: Mucous Membranes Moist Respiratory: Symmetrical Chest Expansion and Respiratory Effort, Clear to Auscultation Cardiovascular: NL Sounds; No Murmurs; No JVD, - - Heart rate irregular Abdominal: NL Sounds; No Tenderness; No Distention, - - ABD hernia Extremities: No Edema Skin: No Rash or Ulcers Neurological: Alert and Oriented x 3, NL Muscle Strength and Tone Lines/Tubes/Other Access: Clean, Dry and Intact Peripheral IV - site benign Nutrition: Taking PO's Result Diagrams: 01/10/18 05:31 01/10/18 05:31 Microbiology and Other Data: Microbiology 01/08/18 18:30 Nasal Screen MRSA (PCR) - Final Nasal Mrsa Not Detected Assess/Plan/Problems-Billing Assessment: Mr. Alfaro is an 82 yo male with PMH significant for P afib, HTN, diverticulosis, HLD, COPD, neuropathy, chronic diastolic heart failure, CKD stage 3, left eye blindness, embolic CVA and bladder cancer who presented to the emergency room with complaints of abdominal pain. - Patient Problems (1) Small bowel obstruction Code(s): K56.609 - UNSP INTESTNL OBST, UNSP TO PARTIAL VERSUS COMPLETE OBST SNOMED Code(s): 218011495 Comment: - Suspect secondary to adhesions d/t multiple ABD surgeries in the past - Moved bowels - General surgery consult, input appreciated - Discontinue NG tube, start clear liquids, Continue IVFs (will decrease IVF rate) (2) A-fib Code(s): I48.91 - UNSPECIFIED ATRIAL FIBRILLATION SNOMED Code(s): 61210340 Comment: - With RVR on admission, resolved - Continue diltiazem (change to PO) and digoxin (change to PO) - Not anticoagulated d/t history of GI bleed (3) CKD (chronic kidney disease) stage 3, GFR 30-59 ml/min Code(s): N18.3 - CHRONIC KIDNEY DISEASE, STAGE 3 (MODERATE) SNOMED Code(s): 407383850 Comment: - EUGENIO resolved - Continue to monitor labs and avoid nephrotoxic agents (4) Chronic diastolic (congestive) heart failure Code(s): I50.32 - CHRONIC DIASTOLIC (CONGESTIVE) HEART FAILURE SNOMED Code(s) : 656293606 Comment: - No signs of exacerbation at this time - Continue daily weights and strict I+O's - Continue to hold furosemide for now, will likely resume in AM (5) COPD (chronic obstructive pulmonary disease) Code(s): J44.9 - CHRONIC OBSTRUCTIVE PULMONARY DISEASE, UNSPECIFIED SNOMED Code(s): 49474842 Comment: - No signs of acute exacerbation at this time - He is not currently on any medications at home (6) Carotid artery disease Code(s): I77.9 - DISORDER OF ARTERIES AND ARTERIOLES, UNSPECIFIED SNOMED Code( s): 542406787 Comment: - S/P carotid endartetectomy - Resume ASA and statin (7) Blind left eye Code(s): H54.42 - BLINDNESS, LEFT EYE, NORMAL VISION RIGHT EYE * DO NOT USE * SNOMED Code(s): 828045898 (8) History of diverticulosis Code(s): Z87.19 - PERSONAL HISTORY OF OTHER DISEASES OF THE DIGESTIVE SYSTEM SNOMED Code(s): 717345538 (9) Hx of abdominal aortic aneurysm Code(s): Z86.79 - PERSONAL HISTORY OF OTHER DISEASES OF THE CIRCULATORY SYSTEM SNOMED Code(s): 764568209 Comment: - S/P endografting - Stable on CT scan (10) Hx of bladder cancer Code(s): Z85.51 - PERSONAL HISTORY OF MALIGNANT NEOPLASM OF BLADDER SNOMED Code(s): 193237884 Comment: - S/P BCG treatment - Continue to follow with urology outpatient (11) Neuropathy Code(s): G62.9 - POLYNEUROPATHY, UNSPECIFIED SNOMED Code(s): 902284392 Comment: - Resume gapapentin (12) Hx of hyperlipidemia Code(s): Z86.39 - PERSONAL HISTORY OF ENDO, NUTRITIONAL AND METABOLIC DISEASE SNOMED Code(s): 915259484 Comment: - Resume statin (13) Hx-TIA (transient ischemic attack) Comment: - Also history of cerebral embolic event - Resume ASA and statin (14) Hx of cardiac pacemaker Code(s): Z95.0 - PRESENCE OF CARDIAC PACEMAKER SNOMED Code(s): 535517190 (15) DVT prophylaxis Code(s): BND8850 - SNOMED Code(s): 567744915 Comment: - Continue SQ heparin and SCDs (16) Full code status Code(s): Z78.9 - OTHER SPECIFIED HEALTH STATUS SNOMED Code(s): 492942953 Status and Disposition: Inpatient. Discharge to home when medically stable, possibly tomorrow.
[2018-01-10] MEDS: Digoxin TAB* 0.125 MG PO SCH (16:47)
[2018-01-11] MEDS: NS 0.9% 1000 ML* 1,000 ML IV SCH (02:27)
[2018-01-11] MEDS: Heparin VIAL(*) 5000 UNITS/ML VIAL (FIVE THOUSAND) SUBCUT SCH ×2 (05:13→13:59)
[2018-01-11] MEDS: Diltiazem CD CAP* 180 MG PO SCH (08:32)
[2018-01-11] MEDS ORDERED: Gabapentin CAP(*) 400 MG PO SCH (09:00)
[2018-01-11] MEDS ORDERED: Aspirin EC TAB* 81 MG TAB.EC PO SCH (09:00)
[2018-01-11] MEDS ORDERED: Atorvastatin* 80 MG TAB PO SCH (09:00)
[2018-01-11] MEDS ORDERED: Furosemide TAB* 20 MG PO SCH (10:00)
--- NOTE | 2018-01-11 13:23 | PN ---
Subjective Date of Service: 01/11/18 Interval History: Patient seen and examined at bedside. Denies fever, chills, shortness of breath , chest discomfort, N/V/D. Pt states that he is feeling well and is tolerating a low residue diet. Tele: Afib and intermittently paced, rate 60-70's. Family History: Unchanged from Admission Social History: Unchanged from Admission Past Medical History: Unchanged from Admission Objective Active Medications: Aspirin (Aspirin Ec Tab*) 81 mg PO MOWEFR NARESH Atorvastatin Calcium (Lipitor*) 80 mg PO DAILY NARESH Digoxin (Lanoxin Tab*) 0.125 mg PO 1700 NARESH Diltiazem HCl (Cardizem Cd Cap*) 180 mg PO DAILY NARESH Furosemide (Lasix Tab*) 20 mg PO DAILY NARESH Gabapentin (Neurontin Cap(*)) 1,200 mg PO DAILY NARESH Heparin Sodium (Porcine) (Heparin Vial(*)) 5,000 units SUBCUT Q8HR NARESH Hydralazine HCl (Apresoline Iv*) 5 mg IV SLOW PU Q6H PRN Reason: SBP>170 Prochlorperazine Edisylate (Compazine Inj*) 5 mg IV Q6H PRN Reason: NAUSEA/ VOMITING Vital Signs - 8 hr 01/11/18 01/11/18 01/11/18 07:38 07:49 08:11 Temperature 99.8 F Pulse Rate 63 Respiratory 18 16 Rate Blood Pressure 175/92 168/90 (mmHg) O2 Sat by Pulse 95 Oximetry 01/11/18 01/11/18 01/11/18 08:30 11:26 11:28 Temperature 97.2 F Pulse Rate 69 Respiratory 16 16 24 Rate Blood Pressure 158/81 (mmHg) O2 Sat by Pulse 95 Oximetry Oxygen Devices in Use Now: None Result Diagrams: 01/10/18 05:31 01/10/18 05:31 Microbiology and Other Data: Microbiology 01/08/18 18:30 Nasal Screen MRSA (PCR) - Final Nasal Mrsa Not Detected Assess/Plan/Problems-Billing Assessment: Mr. Alfaro is an 82 yo male with PMH significant for P afib, HTN, diverticulosis, HLD, COPD, neuropathy, chronic diastolic heart failure, CKD stage 3, left eye blindness, embolic CVA and bladder cancer who presented to the emergency room with complaints of abdominal pain. - Patient Problems (1) Small bowel obstruction Code(s): K56.609 - UNSP INTESTNL OBST, UNSP TO PARTIAL VERSUS COMPLETE OBST SNOMED Code(s): 304094880 Comment: - Suspect secondary to adhesions d/t multiple ABD surgeries in the past - Moved bowels yesterday and passing flatus - General surgery consult, input appreciated - Tolerating full iquids (2) A-fib Code(s): I48.91 - UNSPECIFIED ATRIAL FIBRILLATION SNOMED Code(s): 19176098 Comment: - With RVR on admission, resolved - Continue diltiazem and digoxin - Not anticoagulated d/t history of GI bleed (3) CKD (chronic kidney disease) stage 3, GFR 30-59 ml/min Code(s): N18.3 - CHRONIC KIDNEY DISEASE, STAGE 3 (MODERATE) SNOMED Code(s): 706752509 Comment: - EUGENIO resolved - Continue to monitor labs and avoid nephrotoxic agents (4) Chronic diastolic (congestive) heart failure Code(s): I50.32 - CHRONIC DIASTOLIC (CONGESTIVE) HEART FAILURE SNOMED Code(s) : 545397513 Comment: - No signs of exacerbation at this time - Continue daily weights and strict I+O's - Continue furosemide (5) COPD (chronic obstructive pulmonary disease) Code(s): J44.9 - CHRONIC OBSTRUCTIVE PULMONARY DISEASE, UNSPECIFIED SNOMED Code(s): 55393749 Comment: - No signs of acute exacerbation at this time - He is not currently on any medications at home (6) Carotid artery disease Code(s): I77.9 - DISORDER OF ARTERIES AND ARTERIOLES, UNSPECIFIED SNOMED Code( s): 139433925 Comment: - S/P carotid endartetectomy - Continue ASA and statin (7) Blind left eye Code(s): H54.42 - BLINDNESS, LEFT EYE, NORMAL VISION RIGHT EYE * DO NOT USE * SNOMED Code(s): 684481957 (8) History of diverticulosis Code(s): Z87.19 - PERSONAL HISTORY OF OTHER DISEASES OF THE DIGESTIVE SYSTEM SNOMED Code(s): 331985107 (9) Hx of abdominal aortic aneurysm Code(s): Z86.79 - PERSONAL HISTORY OF OTHER DISEASES OF THE CIRCULATORY SYSTEM SNOMED Code(s): 734773292 Comment: - S/P endografting - Stable on CT scan (10) Hx of bladder cancer Code(s): Z85.51 - PERSONAL HISTORY OF MALIGNANT NEOPLASM OF BLADDER SNOMED Code(s): 500906071 Comment: - S/P BCG treatment - Continue to follow with urology outpatient (11) Neuropathy Code(s): G62.9 - POLYNEUROPATHY, UNSPECIFIED SNOMED Code(s): 489578109 Comment: - Continue gapapentin (12) Hx of hyperlipidemia Code(s): Z86.39 - PERSONAL HISTORY OF ENDO, NUTRITIONAL AND METABOLIC DISEASE SNOMED Code(s): 706456176 Comment: - Continue statin (13) Hx-TIA (transient ischemic attack) Comment: - Also history of cerebral embolic event - Continue ASA and statin (14) Hx of cardiac pacemaker Code(s): Z95.0 - PRESENCE OF CARDIAC PACEMAKER SNOMED Code(s): 408848018 (15) DVT prophylaxis Code(s): YXY6814 - SNOMED Code(s): 229136672 Comment: - Continue SQ heparin and SCDs (16) Full code status Code(s): Z78.9 - OTHER SPECIFIED HEALTH STATUS SNOMED Code(s): 948109717 Status and Disposition: Inpatient. Stable for discharge to home.
[2018-01-11 15:56] VITALS: BP 129/70
[2018-01-11] MEDS: Digoxin TAB* 0.125 MG PO SCH (16:10)
--- NOTE | 2018-01-12 02:27 | DS ---
CC: Iliana Malcolm MD * DISCHARGE SUMMARY: DATE OF ADMISSION: 01/09/18 DATE OF DISCHARGE: 01/11/18 ATTENDING PHYSICIAN: Ralph Martinez MD * (dictated by Reina Martin NP) PRIMARY DIAGNOSES: 1. Small bowel obstruction. 2. Atrial fibrillation with rapid ventricular response, resolved. 3. Acute kidney injury, resolved. SECONDARY DIAGNOSES: 1. Transient ischemic attack. 2. Diverticulitis. 3. Hyperlipidemia. 4. Chronic obstructive pulmonary disease. 5. Chronic diastolic heart failure. 6. Chronic kidney disease, stage 3. 7. Left eye blindness. 8. Embolic cerebrovascular accident. 9. Bladder cancer with BCG treatment. 10. Neuropathy. CONSULTATIONS WHILE IN THE HOSPITAL: Dr. Beverly Ventura with General Surgery. STUDIES WHILE IN THE HOSPITAL: 1. Chest, abdomen, pelvis CT on 01/08/18. Radiologist's impression: Abdomen aortic aneurysm measuring 5.2 x 5.9 cm at the maximal axial dimension, not significantly changed since the most recent CT examination dated 07/06/15. In the interval, the patient has undergone endograft stent placement. Considering differences in the technique from preoperative CT examination, this appears to be stable. There is no definite evidence of Endoleak. Pathologically dilated loops of proximal small bowel measuring up to 4 cm in diameter with appearance of fecalization in the intraluminal contents. There is a midline abdominal hernia containing peritoneal fat. At the time of this image acquisition, there is no bowel extending into the hernia, but this could be reduced at the time of image acquisition in the supine position. Please correlate to physical exam findings of reducible hernia. Additional chronic degenerative and iatrogenic findings described in the body of the report. 2. Chest x-ray from 01/08/18. Radiologist's impression: Interval placement of nasogastric tube with the tip overlying the air filled gastric fundus. 3. Abdominal x-ray on 01/09/18. Radiologist impression: Findings consistent with small bowel obstruction with persistent dilated stomach. Nasogastric tube is in the distal esophagus. DISCHARGE MEDICATIONS: Continued home medications: 1. TriCor 160 mg oral daily. 2. Vitamin B12 of 1000 mcg oral daily. 3. Vitamin D 1000 mg oral daily. 4. Aspirin 81 mg oral on Thursday, Thursday, Thursday. 5. Diltiazem 180 mg oral daily. 6. Gabapentin 1200 mg oral daily. 7. Digoxin 0.125 mg oral daily. 8. Furosemide 20 mg oral daily. 9. Ketoconazole 2% topical daily as needed. 10. Atorvastatin 80 mg oral daily. HISTORY OF PRESENT ILLNESS/HOSPITAL COURSE: Mr. Alfaro is an 82-year-old male with past medical history significant for paroxysmal atrial fibrillation, hypertension, diverticulitis, hyperlipidemia, COPD, neuropathy, chronic diastolic heart failure, chronic kidney disease stage 3, left eye blindness, embolic CVA, history of bladder cancer treated with BCG, who was in his usual state of health when he woke on the morning prior to his presentation. During the day, he developed abdominal pain, it was accompanied by nausea, vomiting, back pain, and decreased bowel movements. He had moved his bowels less on the morning prior to his presentation and had not been passing flatus for a day. He was able to eat breakfast on the morning of his presentation, but due to his abdominal discomfort, he had not eaten or drank for the rest of the day, so he presented to the emergency room for further evaluation of his symptoms. While in the emergency room, he received Tylenol, a liter of saline. He had a chest, abdomen, and pelvis CTA as his family was told to watch out for the symptoms he was having after his aortic endograft stent placement. This CTA showed pathologically dilated loops of proximal bowel consistent with a small bowel obstruction. General Surgery was consulted, who recommended the hospitalists admit the patient due to his past medical history and that they would consult. The hospitalists evaluated the patient for admission. While in the hospital, the patient had NG tube decompression and bowel rest. He also had pain medication and IV fluids. The patient also was initially in atrial fibrillation with RVR. Due to his being n.p.o., he was placed on a diltiazem drip to manage his heart rate. His heart rate improved to AFib with intermittent pacing. Once he was no longer n.p.o., he was transitioned back to oral medications. During his stay, his acute on chronic kidney injury resolved. He had a repeat chest x-ray showing that his NG-tube was in his distal esophagus. The NG tube was advanced. He was continued on bowel rest and G-tube. The patient was able to have a bowel movement and was passing flatus. His NG-tube was removed. He was gradually increased from a clear liquid to full liquid. He is on a low residue diet. He was tolerating well. He continued to pass flatus. Mr. Alfaro has been doing well and is stable for discharge today. Mr. Alfaro is stable for discharge home today. Vital signs are as follows: Temperature 99.3, heart rate 62, respiratory rate 18, O2 sat 95% on room air, blood pressure 129/70. DISCHARGE PLAN: Mr. Alfaro will be discharged to home. Activity as tolerated. He has been asked to be on a low residue diet for 1 week and he can transition back to his regular diet. In regards to his other chronic medical conditions, he has been continued on his home medications. His acute on chronic kidney injury resolved. ]He has a followup appointment with his primary care provider, Dr. Iliana Malcolm on 01/15/18 at 2:20 p.m. He has been asked to return to the emergency room for any chest pain, shortness of breath. This is a summarized report of a complex medical history and hospital stay. For further details, please see the entire medical record. TIME SPENT: Time for this discharge was approximately 50 minutes, greater than half of that was spent with the patient and discussing discharge plans and instructions. CONDITION ON DISCHARGE: Stable. Reviewed by TRICIA AHN 01/13/18 1742 [id number]/[facility] #: [id number] VINOD
== END 2018-01-11 17:20 | disposition home or self-care (01) | DRG 389 ==
LOC: ED 12:18 → ICU 17:04 → MEDTELE 01-09 11:18 → OBSVTOIN 01-09 12:11
PROVIDERS: ADMIT Internal Medicine; ATTEND Internal Medicine
PROC: 0D9670Z Drainage of Stomach with Drainage Device, Via Natural or Artificial Opening (ICD-10-PCS; principal; 2018-01-09)
DX: K56.609 Unspecified intestinal obstruction, unspecified as to partial versus complete obstruction (principal); I13.0 Hypertensive heart and chronic kidney disease with heart failure and stage 1 through stage 4 chronic kidney disease, or unspecified chronic kidney disease; I50.32 Chronic diastolic (congestive) heart failure; N17.9 Acute kidney failure, unspecified; I48.0 Paroxysmal atrial fibrillation; N18.3 Chronic kidney disease, stage 3 (moderate); E78.5 Hyperlipidemia, unspecified; J44.9 Chronic obstructive pulmonary disease, unspecified; G62.9 Polyneuropathy, unspecified; H54.61 Unqualified visual loss, right eye, normal vision left eye; K43.9 Ventral hernia without obstruction or gangrene; K57.90 Diverticulosis of intestine, part unspecified, without perforation or abscess without bleeding; Z86.73 Personal history of transient ischemic attack (TIA), and cerebral infarction without residual deficits; Z85.89 Personal history of malignant neoplasm of other organs and systems; Z85.51 Personal history of malignant neoplasm of bladder; Z95.0 Presence of cardiac pacemaker; Z96.651 Presence of right artificial knee joint; Z79.82 Long term (current) use of aspirin; Z79.899 Other long term (current) drug therapy; Z91.040 Latex allergy status; Z82.3 Family history of stroke; Z83.3 Family history of diabetes mellitus; Z82.5 Family history of asthma and other chronic lower respiratory diseases; Z87.891 Personal history of nicotine dependence
CPT/HCPCS: 36415; 71045; 71275; 74019; 74174; 80048; 80053; 81003; 81015; 83605; 83690; 85025; 86140; 87086; 87641; 93005; 99284; A9270-GY; G0378; J0360; J0780; J1160; J1644; Q9967

== ENCOUNTER → 2018-03-30 16:26 | Emergency (ER) | payer MEDICARE ==
[~2018-03-30 16:26] MED LIST: Dexamethasone IV* 4 MG/ML 1 ML (4 MG) IV SLOW PU ONE; Morphine INJ* 4 MG/ML 1 ML SYRINGE (NEW SYRINGE VERSION) IM ONE
--- OUTSIDE RECORDS SUMMARY | 2018-03-30 16:33 | XMS REPORT | Continuity of Care Document ---
:1935 External Reference #:[id number] Author Name Lebron Phelps M.D. Address [address] [address] Care Team Providers Name Role Phone Iliana Malcolm M.D. Care Team Information Performance Test Consultant Unavailable Payers Type Date Identification Numbers Payment Provider Subscriber Policy Number: [id number] [employer] Mihir Alfaro PayID: [id number] [address] [address] [place] [address] Advance Directives Description No Information Available Problems Description No Information Family History Description No Information Available Social History Type Date Description Comments Sex Unknown Occupation Retired Tobacco Use Start: Unknown End: Unknown Former Cigarette Smoker 3 Packs Daily Tobacco Use Start: Unknown End: Unknown Former Cigar Smoker 5 Daily Tobacco Use Start: Unknown End: Unknown Former Pipe Smoker, Smoked 4 Pipes Daily Smoking Status Reviewed: 03/23/18 Former Pipe Smoker, Smoked 4 Pipes Daily Smokeless Tobacco Never Used Smokeless Tobacco ETOH Use PT Does Not Currently Drink Alcohol Tobacco Use Start: Unknown End: Unknown Patient is a former smoker Allergies, Adverse Reactions, Alerts Date Description Reaction Status Severity Comments 03/23/2018 Latex Active Medications Medication Date Status Form Strength Qnty SIG Indications Ordering Provider Diltiazem HCL Active Caps ER 180mg 1 by mouth Unknown ER 000 24HR every day Furosemide 0 Active Tablets 20mg 1 by mouth Unknown 000 every day Atorvastatin 0 Active Tablets 80mg as Unknown Calcium 000 directed B12 Fast 0 Active Tablets 5000mcg as Unknown Dissolve 000 Dispers directed D3 Dots 0 Active Tablets 2000Unit as Unknown 000 Dispers directed Aspirin 81 Low Active Chewtabs 81mg daily Unknown Dose 000 Digoxin Active Tablets 125mcg as Unknown 000 directed Gabapentin Active Capsules 300mg 1 tab in Unknown 000 am 5 tabs in the pm Immunizations Description No Information Available Vital Signs Date Vital Result Comment 03/23/2018 1:28pm Weight 174.00 lb Weight 78.926 kg Height 67 inches 5'7" Height in cm's 170.2 cm BMI (Body Mass Index) 27.2 kg/m2 Results Description No Information Available Procedures Date Code Description Status 03/23/2018 16769 Tympanometry Completed 03/23/2018 77723 Comprehensive Audiogram Completed Encounters Type Date Location Provider Dx Diagnosis Office Visit 03/23/2018 [place],Domingo Akins H90.3 Sensorineural hearing 1:30p 06/08/07 Alen Phelps. 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 this is the pattern of hearing loss we commonly see in the aging ear and with noise exposure. The sensory cells in this range are more sensitive to noise ant thus are the first to get damaged. this hearing loss is not reversible, but further damage can be prevented by protecting the ears from noise exposure. He does not want to spend alot of money, so I recommended [employer] for the rechargeable hearing aids. I also showed him the [employer] hearphones.
--- NOTE | 2018-03-30 17:19 | RAD ---
HISTORY: left knee pain COMPARISONS: August 02, 2014 VIEWS: 4 , Frontal, lateral, axial, and oblique views of the left knee FINDINGS: BONE DENSITY: There is diffuse osteopenia. BONES: There is no displaced fracture. JOINTS: There is moderate to advanced tricompartmental osteoarthritis. There is a large suprapatellar joint effusion without lipohemarthrosis. ALIGNMENT: There is no dislocation. SOFT TISSUES: There is peripheral arterial calcification. OTHER FINDINGS: None. IMPRESSION: 1. LARGE SUPRAPATELLAR JOINT EFFUSION WITHOUT LIPOHEMARTHROSIS. 2. OSTEOPENIA. 3. OSTEOARTHRITIS. 4. PERIPHERAL ARTERIAL DISEASE. 5. NO ACUTE OSSEOUS INJURY. IF SYMPTOMS PERSIST, RECOMMEND REPEAT IMAGING
--- NOTE | 2018-03-30 17:29 | ED ---
Lower Extremity - HPI Summary HPI Summary: 82-year-old male presents with left knee pain since this morning. He states he woke up with his knee was swollen. He denies any fevers. He denies any rash. never had this before. He has history of osteoarthritis that was suppose to have a knee replacement of the knee. States pain is greatest over his thigh. He was given 8 mg morphine in the ambulance and now can move his knee well. No chills. He is not on blood thinners but takes a daily aspirin. - History of Current Complaint Chief Complaint: EDExtremityLower Stated Complaint: LT KNEE PAIN Time Seen by Provider: 03/30/18 16:58 Pain Intensity: 2 - Allergies/Home Medications Allergies/Adverse Reactions: Allergies Allergy/AdvReac Type Severity Reaction Status Date / Time latex Allergy Rash Verified 03/30/18 16:45 PMH/Surg Hx/FS Hx/Imm Hx Endocrine/Hematology History: Denies: Hx Diabetes, Hx Thyroid Disease Cardiovascular History: Reports: Hx Aneurysm, Hx Hypertension - ON MEDICATION, Hx Pacemaker/ICD, Other Cardiovascular Problems/Disorders - A-fib, pacemaker Respiratory History: Reports: Hx Chronic Obstructive Pulmonary Disease (COPD) - Emphyzema, Hx Sleep Apnea - EARLY , Other Respiratory Problems/Disorders - EMPHYSEMA Denies: Hx Asthma GI History: Reports: Hx Diverticulosis, Other GI Disorders - diverticulitis Denies: Hx Ulcer History: Reports: Other Problems/Disorders - RIGHT KIDNEY ONLY FUNCTIONINGT KIDNEY Musculoskeletal History: Reports: Hx Arthritis - BILATERAL FEET AND HAND Sensory History: Reports: Hx Cataracts, Hx Contacts or Glasses - GLASSES Denies: Hx Hearing Aid Opthamlomology History: Reports: Hx Cataracts, Hx Contacts or Glasses - GLASSES Neurological History: Reports: Hx Migraine - AGE 18, Hx Transient Ischemic Attacks (TIA) - [id number] - Cancer History Cancer Type, 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 AAA REPAIR. Hx Anesthesia Reactions: No - Immunization History Date of Tetanus Vaccine: Unk Date of Influenza Vaccine: Fall 2013 Infectious Disease History: No Infectious Disease History: Denies: Hx Hepatitis, Hx Human Immunodeficiency Virus (HIV), Hx Shingles, Hx Tuberculosis, History Other Infectious Disease, Traveled Outside the [place] in Last 30 Days - Family History Known Family History: Positive: Renal Disease - one kidney - Social History Alcohol Use: Rare Alcohol Amount: WINE Hx Substance Use: No Substance Use Type: Reports: None Hx Tobacco Use: No - quit 20 yrs ago, smoked 3ppd for 45 yrs Smoking Status (MU): Former Smoker Type: Cigarettes Review of Systems Negative: Fever Negative: Chest Pain Negative: Shortness Of Breath Positive: Myalgia - knee pain All Other Systems Reviewed And Are Negative: Yes Physical Exam Triage Information Reviewed: Yes Vital Signs On Initial Exam: Initial Vitals Temp Pulse Resp BP Pulse Ox 97.9 F 73 16 152/90 93 03/30/18 16:41 03/30/18 16:41 03/30/18 16:41 03/30/18 16:41 03/30/18 16:41 Vital Signs Reviewed: Yes Appearance: Positive: Well-Appearing Skin: Positive: Warm, Dry Head/Face: Positive: Normal Head/Face Inspection Eyes: Positive: Normal, Conjunctiva Clear ENT: Positive: Pharynx normal Respiratory/Lung Sounds: Positive: Clear to Auscultation, Breath Sounds Present Cardiovascular: Positive: Normal, RRR Musculoskeletal: Positive: Strength/ROM Intact - left knee, Edema Left - knee, Other - no erythema and not warm to touch, good pulses, Neurological: Positive: Normal Psychiatric: Positive: Normal Diagnostics - Vital Signs Vital Signs Temp Pulse Resp BP Pulse Ox 03/30/18 16:41 97.9 F 73 16 152/90 93 - Laboratory Result Diagrams: 03/30/18 17:48 03/30/18 17:48 Lab Statement: Any lab studies that have been ordered have been reviewed, and results considered in the medical decision making process. - Radiology knee Radiology Interpretation Completed By: Radiologist Summary of Radiographic Findings: IMPRESSION: 1. LARGE SUPRAPATELLAR JOINT EFFUSION WITHOUT LIPOHEMARTHROSIS. 2. OSTEOPENIA. 3. OSTEOARTHRITIS. 4. PERIPHERAL ARTERIAL DISEASE. 5. NO ACUTE OSSEOUS INJURY. IF SYMPTOMS PERSIST, RECOMMEND REPEAT IMAGING - Ultrasound No standard instances Ultrasound Interpretation Completed By: Radiologist Summary of Ultrasound Findings: no DVT Lower Extremity Course/Dx - Course Course Of Treatment: 82-year-old male presents with left knee pain since this morning. He states he woke up with his knee was swollen. He denies any fevers. He denies any rash. never had this before. He has history of osteoarthritis that was suppose to have a knee replacement of the knee. States pain is greatest over his thigh. He was given 8 mg morphine in the ambulance and now can move his knee well. No chills. He is not on blood thinners but takes a daily aspirin. on exam has no erythema or warmth to joint, has large joint effusion seen on xray with osteoarthritis. crp only 9. esr normal. discussed with dr michael and this is not a septic joint. u/s shows no DVT. discussed placing knee in do to size but patient declined. advised to follow up with ortho. patient understand and agrees with plan. - Diagnoses Differential Diagnosis/HQI/PQRI: Positive: Septic Arthritis, Other - joint effusion Provider Diagnoses: Effusion, left knee Discharge - Sign-Out/Discharge Documenting (check all that apply): Patient Departure - Discharge Plan Condition: Good Disposition: HOME Prescriptions: methylPREDNISolone [Medrol Dosepak 4 MG*] 4 mg PO .SEE NIC INSTRUCTION #1 packet oxyCODONE TAB* [Roxycodone TAB 5 mg*] 5 mg PO Q8H PRN #12 tab MDD 3 PRN Reason: Pain Patient Education Materials: Swollen Knee Joint (ED) Referrals: Cachorro Reza MD [Medical Doctor] - Iliana Malcolm MD [Primary Care Provider] - Additional Instructions: Ice, elevate Take tyenlol for pain, use oxycodone for pain every 8 hours, use colace if any issues with constipation take steroid package as prescribed use jacinto Follow up with ortho Return to ED if develop red hot joint or fever or any new or worsening symptoms - Billing Disposition and Condition Condition: GOOD Disposition: Home
[2018-03-30 17:58] LABS: Hematocrit 45 % (42-52); Mean Corpuscular HGB Conc 34 g/dl (31-36); Mean Corpuscular Hemoglobin 31 pg (27-31); Mean Corpuscular Volume 91 fL (80-94); Mean Platelet Volume 9.6 um3 (7.4-10.4); Platelet Count 153 10^3/ul (150-450); Red Cell Distribution Width 16 % (10.5-15); White Blood Count 7.4 10^3/ul (3.5-10.8)
[2018-03-30 18:06] LABS: INR 1.08 (0.77-1.02)
[2018-03-30 18:15] LABS: EGFR Non-African American 67.3 (>60); Uric Acid 9.5 mg/dL (4.4-7.6)
[2018-03-30 18:30] LABS: ABS Basophils 0 10^3/ul (0-0.2); ABS Eosinophils 0.1 10^3/ul (0-0.6); ABS Lymphocytes 0.6 10^3/ul (1.0-4.8); ABS Monocytes 0.6 10^3/ul (0-0.8)
[2018-03-30 18:32] LABS: ABS Basophils 0.1 10^3/ul (0-0.2); ABS Neutrophils 5.7 10^3/ul (1.5-7.7); Monocytes % 6 % (0-7)
--- NOTE | 2018-03-30 20:36 | RAD ---
EXAM: US Left Duplex Lower Extremity Veins, Limited EXAM DATE/TIME: 03/30/2018 8:06 PM CLINICAL HISTORY: 82 years old, male; Signs and symptoms; Edema, localized; Lower extremity, left; Additional info: Left thigh swelling TECHNIQUE: Real-time Duplex ultrasound of the Left Lower Extremity with 2-D durham scale, color Doppler flow and spectral waveform analysis. Limited exam focused on the left lower extremity veins. COMPARISON: No relevant prior studies available. FINDINGS: Left deep veins: Unremarkable. The common femoral, femoral and popliteal veins are patent without thrombus. Normal compressibility, augmentation response and Doppler waveforms. Left superficial veins: Unremarkable. Saphenofemoral junction is patent without thrombus. Soft tissues: Large complex suprapatellar fluid collection described on recent knee series as lipohemarthrosis. IMPRESSION: No acute deep venous thrombosis. To contact [facility] with a general question: [facility] - [phone] For direct physician to physician contact: Physician Hotline - [phone] [facility] ([facility] Facility ID #[id number])
[2018-03-30 21:14] VITALS: BP 160/122
== END | disposition home or self-care (01) ==
LOC: ED 16:26
DX: M25.462 Effusion, left knee (principal); R60.0 Localized edema; M25.562 Pain in left knee; M85.862 Other specified disorders of bone density and structure, left lower leg; M17.12 Unilateral primary osteoarthritis, left knee; I73.9 Peripheral vascular disease, unspecified; I10 Essential (primary) hypertension; Z79.82 Long term (current) use of aspirin; Z95.810 Presence of automatic (implantable) cardiac defibrillator; Z96.651 Presence of right artificial knee joint; Z91.040 Latex allergy status; Z87.891 Personal history of nicotine dependence
CPT/HCPCS: 36415; 80053; 84550; 85025; 85060; 85610; 85652; 85730; 86140; 86618; 96372; 96374; 99282; J1100; J2270

== ENCOUNTER 2018-07-13 10:23 | Observation (INO) | payer MEDICARE ==
--- NOTE | 2018-07-13 10:50 | ED ---
Dizziness - HPI Summary HPI Summary: An 83 y/o male brought in by [facility] ambulance presents to [facility] with a chief complaint of dizziness since 07/11/18. He also reports that he does not take any blood thinners although he used to take Coumadin. BP at triage was 154/96. At triage the patient rated his pain as a 0/10 in severity. He describes his dizziness as "It feels like I am going to fall over", like he is drunk. He denies EtOH use. He denies any N/V, CP or SOB. 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 He reports that his dizziness only occurs when he stands up. - History Of Current Complaint Stated Complaint: DIZZINESS/ POSS HBP Time Seen by Provider: 07/13/18 10:35 Hx Obtained From: Patient, EMS Onset/Duration: Still Present Timing: Constant Severity Initially: Mild Severity Currently: Mild Aggravating Factor(s): Other - Standing up Alleviating Factor(s): Lying Down Associated Signs And Symptoms: Negative: Nausea, Vomiting, Chest Pain, SOB, Fever - Allergies/Home Medications Allergies/Adverse Reactions: Allergies Allergy/AdvReac Type Severity Reaction Status Date / Time latex Allergy Rash Verified 07/13/18 10:54 Home Medications: Home Medications Gabapentin 300 mg PO DAILY 07/13/18 [History Confirmed 07/13/18] PMH/Surg Hx/FS Hx/Imm Hx Endocrine/Hematology History: Denies: Hx Diabetes, Hx Thyroid Disease Cardiovascular History: Reports: Hx Aneurysm, Hx Hypertension - ON MEDICATION, Hx Pacemaker/ICD, Other Cardiovascular Problems/Disorders - A-fib, pacemaker Respiratory History: Reports: Hx Chronic Obstructive Pulmonary Disease (COPD) - Emphyzema, Hx Sleep Apnea - EARLY , Other Respiratory Problems/Disorders - EMPHYSEMA Denies: Hx Asthma GI History: Reports: Hx Diverticulosis, Other GI Disorders - diverticulitis Denies: Hx Ulcer History: Reports: Other Problems/Disorders - RIGHT KIDNEY ONLY FUNCTIONINGT KIDNEY Musculoskeletal History: Reports: Hx Arthritis - BILATERAL FEET AND HAND Sensory History: Reports: Hx Cataracts, Hx Contacts or Glasses - GLASSES Denies: Hx Hearing Aid Opthamlomology History: Reports: Hx Cataracts, Hx Contacts or Glasses - GLASSES Neurological History: Reports: Hx Migraine - AGE 18, Hx Transient Ischemic Attacks (TIA) - [id number] - Cancer History Cancer Type, 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 AAA REPAIR. Hx Anesthesia Reactions: No - Immunization History Date of Tetanus Vaccine: Unk Date of Influenza Vaccine: Fall 2013 Infectious Disease History: No Infectious Disease History: Denies: Hx Hepatitis, Hx Human Immunodeficiency Virus (HIV), Hx Shingles, Hx Tuberculosis, History Other Infectious Disease, Traveled Outside the [place] in Last 30 Days - Family History Known Family History: Positive: Renal Disease - one kidney - Social History Alcohol Use: Rare Alcohol Amount: WINE Hx Substance Use: No Substance Use Type: Reports: None Hx Tobacco Use: No - quit 20 yrs ago, smoked 3ppd for 45 yrs Smoking Status (MU): Former Smoker Type: Cigarettes Review of Systems Negative: Fever Negative: Chest Pain Negative: Shortness Of Breath Negative: Vomiting, Nausea Neurological: Other - positive: dizziness All Other Systems Reviewed And Are Negative: Yes Physical Exam - Summary Physical Exam Summary: VITAL SIGNS: Reviewed. GENERAL: Patient is a well-developed and nourished MALE who is lying comfortable in the stretcher.Patient is not in any acute respiratory distress. HEAD AND FACE: No signs of trauma. No ecchymosis, hematomas or skull depressions. No sinus tenderness. EYES: Blind out of left eye. PERRLA, EOMI, No injected conjunctiva, no nystagmus. No photophobia. EARS: Hearing grossly intact. Ear canals and tympanic membranes are within normal limits. MOUTH: Oropharynx within normal limits. NECK: Supple, trachea is midline, no adenopathy, no JVD, no carotid bruit, no c- spine tenderness, neck with full ROM. No meningeal signs, no Kernig's or brudzinskis signs. CHEST: Symmetric, no tenderness at palpation LUNGS: Clear to auscultation bilaterally. No wheezing or crackles. CVS: Regular rate and rhythm, S1 and S2 present, no murmurs or gallops appreciated. ABDOMEN: Soft, non-tender. No signs of distention. No rebound no guarding, and no masses palpated. Bowel sounds are normal. EXTREMITIES: FROM in all major joints, no edema, no cyanosis or clubbing. NEURO: Alert and oriented x 3. No acute neurological deficits. Speech is normal and follows commands. SKIN: Dry and warm GCS: 15 Triage Information Reviewed: Yes Vital Signs On Initial Exam: Initial Vitals Temp Pulse Resp BP Pulse Ox 97.8 F 64 18 154/96 98 07/13/18 10:39 07/13/18 10:39 07/13/18 10:39 07/13/18 10:39 07/13/18 10:39 Vital Signs Reviewed: Yes - Kyree Coma Scale Best Eye Response: 4 - Spontaneous Best Motor Response: 6 - Obeys Commands Best Verbal Response: 5 - Oriented Coma Scale Total: 15 Diagnostics - Vital Signs Vital Signs Temp Pulse Resp BP Pulse Ox 07/13/18 10:39 97.8 F 64 18 154/96 98 - Laboratory Result Diagrams: 07/13/18 11:05 07/13/18 11:05 Lab Statement: Any lab studies that have been ordered have been reviewed, and results considered in the medical decision making process. - Radiology CXR Radiology Interpretation Completed By: Radiologist Summary of Radiographic Findings: Stigmata of obstructive lung disease. Mild cardiomegaly. No acute pulmonary or cardiac. process evident. ED physician has reviewed this imaging report. - CT Brain CT Interpretation Completed By: Radiologist Summary of CT Findings: Involutional change and stigmata of chronic small vessel ischemic disease. No acute. intracranial process evident. ED physician has reviewed this imaging report. - EKG 11:19 Cardiac Rate: Other Rate - Atrial Fibrillation with paced rhythm at 64 bpm EKG Rhythm: Atrial Fibrillation EKG Comparison: No Significant Change Summary of EKG Findings: Atrial Fibrillation with paced rhythm at 64 bpm, no change from previous EKG Re-Evaluation - Re-Evaluation First Eval Re-Evaluation Time: 12:20 Change: Unchanged Comment: Informed patient about results Second Eval Re-Evaluation Time: 13:00 Change: Unchanged Comment: Informed patient on plan of admission Dizzy Course/Dx - Course Assessment/Plan: Blood test results without any significant abnormality except for BUN of 26, total bili is 1.2, alkaline phosphatase is 110, troponin is 0.03. Chest x-ray impression: Stigmata for obstructive lung disease. Mild cardiomegaly. No acute pulmonary or cardiac process. Because the patient has history of CVA I decided to do a head CT even though the patients neurological exam is normal. Head CT impression: Emotional changes and the stigmata of chronic small vessel ischemic disease. No acute intracranial process evident. In the ED course the patient was given IV fluids, meclizine and Ativan for the vertigo. After these medications the patients symptoms have not improved. Therefore the patient was given Valium. I did order an MRI of the brain however I was informed that the patient has a pacemaker with leads that are not compatible with an MRI. Therefore at this time I discussed my physical exam and findings with Dr. Sarabia from the neurology services who will consult for this patient. I also discussed the case with Dr. Castro from the hospital services was accepted the patient for admission. At this point the patient is hemodynamically stable alert and oriented 3. - Diagnoses Differential Diagnosis/HQI/PQRI: Benign Paroxysmal Positional Vertigo, CVA, Hypovolemia, Meniere's Disease, Medication Reaction, Transient Ischemic Attack, Vasovagal Reaction Provider Diagnoses: Vertigo - Provider Notifications Discussed Care Of Patient With: Jossue Castro Time Discussed With Above Provider: 12:55 Instructed by Provider To: Admit As Inpatient Discharge - Sign-Out/Discharge Documenting (check all that apply): Patient Departure - admit Patient Received Moderate/Deep Sedation with Procedure: No - Discharge Plan Condition: Fair Disposition: ADMITTED TO [facility] - Billing Disposition and Condition Condition: FAIR Disposition: Admitted to [facility] - Attestation Statements Document Initiated by Owen: Yes Documenting Scribe: Bandar Flor Provider For Whom Owen is Documenting (Include Credential): Arnold Amador MD Scribe Attestation: I, Bandar Flor, scribed for Arnold Amador MD on 07/13/18 at 2116. Scribe Documentation Reviewed: Yes Provider Attestation: The documentation as recorded by the Bandar rojas accurately reflects the service I personally performed and the decisions made by me, Arnold Amador MD Status of Scribe Document: Viewed NIH Scale - NIH Scale Level of Consciousness: Alert/Keenly Responsive Ask Patient the Month and His/Her Age: Both Correct Ask Pt to Open/Close Eyes and Master Glazier/Release Non-Paretic Hand: Both Correctly Best Gaze (Only Horizontal Eye Movement): Normal Visual Field Testing: No Visual Loss Facial Paresis-Pt to Smile & Close Eyes or Grimace Symmetry: Normal/Symmetrical Motor Function - Right Arm: No Drift-Holds 10 Seconds Motor Function - Left Arm: No Drift-Holds 10 Seconds Motor Function - Right Leg: No Drift-Holds 10 Seconds Motor Function - Left Leg: No Drift-Holds 10 Seconds Limb Ataxia-Must be out of Proportion to Weakness Present: Absent Sensory (Use Pinprick to Test Arms/Legs/Trunk/Face): Normal Best Language (Describe Picture, Name Items): No Aphasia Dysarthria (Read Several Words): Normal Extinction and Inattention: No Abnormality Total Score: 0 Consult Consult: At 13:[address] Sarabia, neuro, who will consult the patient.
[2018-07-13] MEDS ORDERED: Meclizine TAB* 12.5 MG PO ONE (11:05)
[2018-07-13] MEDS ORDERED: LORazepam TAB(*) 1 MG PO ONE (11:05)
[2018-07-13 11:17] LABS: ABS Basophils 0.1 10^3/ul (0-0.2); ABS Eosinophils 0.1 10^3/ul (0-0.6); ABS Lymphocytes 0.8 10^3/ul (1.0-4.8); ABS Monocytes 0.6 10^3/ul (0-0.8); ABS Neutrophils 5.2 10^3/ul (1.5-7.7); ABS Nucleated RBC 0 10^3/ul; Eosinophil % 1.5 %; Hematocrit 49 % (42-52); Hemoglobin 16.5 g/dl (14.0-18.0); Lymphocyte % 11.5 %; Mean Corpuscular HGB Conc 33 g/dl (31-36); Mean Corpuscular Hemoglobin 31 pg (27-31); Mean Corpuscular Volume 92 fL (80-94); Mean Platelet Volume 9.5 fL (7.4-10.4); Nucleated Red Blood Cells % 0.1; Platelet Count 155 10^3/ul (150-450); Red Blood Count 5.38 10^6/ul (4.00-5.40); Red Cell Distribution Width 16 % (10.5-15); White Blood Count 6.7 10^3/ul (3.5-10.8)
[2018-07-13 11:43] LABS: ALT 15 U/L (7-52); AST 19 U/L (13-39); Albumin/Globulin Ratio 1.4 (1-3); Alkaline Phosphatase 110 U/L (34-104); Anion Gap 7 mmol/L (2-11); BUN/Creatinine Ratio 24.8 (8-20); Blood Urea Nitrogen 26 mg/dL (6-24); C Reactive Protein 3.64 mg/L (<8.01); CO2 Carbon Dioxide 30 mmol/L (22-32); Calcium 9.7 mg/dL (8.6-10.3); Chloride 103 mmol/L (101-111); Creatine Kinase 62 U/L (10-223); EGFR African American 81.2 (>60); EGFR Non-African American 67.1 (>60); Globulin 2.8 g/dL (2-4); Glucose 90 mg/dL (70-100); Magnesium 2.1 mg/dL (1.9-2.7); Potassium 4.4 mmol/L (3.5-5.0); Sodium 140 mmol/L (135-145); Total Protein 6.8 g/dL (6.4-8.9)
[2018-07-13 11:45] LABS: Troponin I 0.03 ng/mL (<0.04)
[2018-07-13 12:06] LABS: Alcohol < 10 mg/dL (<10)
[2018-07-13 12:20] LABS: TSH (Thyroid Stimulating Horm) 3.57 mcIU/mL (0.34-5.60)
[2018-07-13] MEDS ORDERED: Diazepam TAB(*) 5 MG PO ONE (12:22)
[2018-07-13 12:48] LABS: Urine Appearance Clear; Urine Bacteria Absent (Absent); Urine Bilirubin Negative (Negative); Urine Blood Negative (Negative); Urine Color Yellow; Urine Glucose Negative (Negative); Urine Ketones Negative (Negative); Urine Nitrite Negative (Negative); Urine Protein 2+(100 mg/dL) (Negative); Urine Red Blood Cell 2+(6-10/hpf) (Absent); Urine Specific Gravity 1.019 (1.010-1.030); Urine Urobilinogen Negative (Negative); Urine White Blood Cell Absent (Absent)
[2018-07-13 13:14] LABS: Barbiturates Urine Screen None Detected (None Detect); Benzodiazepine Urine Screen None Detected (None Detect); Urine Cannabinoids Screen None Detected (None Detect)
[2018-07-13] MEDS ORDERED: Acetaminophen TAB* 325 MG PO PRN (13:54)
[2018-07-13] MEDS ORDERED: NS 0.9% 1000 ML** 1,000 ML IV SCH (14:00)
[2018-07-13] MEDS: Heparin VIAL(*) 5000 UNITS/ML VIAL (FIVE THOUSAND) SUBCUT SCH ×2 (16:05→21:48)
[2018-07-13] MEDS: Diltiazem CD CAP* 180 MG PO SCH (16:07)
[2018-07-13] MEDS: Digoxin TAB* 0.125 MG PO SCH (16:07)
--- NOTE | 2018-07-13 17:45 | HP ---
CC: Dr. Iliana Malcolm * HISTORY AND PHYSICAL: DATE OF ADMISSION: 07/13/18 PROVIDER: Little Patel NP PRIMARY CARE PROVIDER: Dr. Iliana Malcolm. ATTENDING PHYSICIAN WHILE IN THE HOSPITAL: Dr. Jossue Castro * (dictated by Little Patel NP). CHIEF COMPLAINT: Dizziness. HISTORY OF PRESENT ILLNESS: Mr. 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 The patient reports that sitting and lying, the dizziness subsides, but with standing, the dizziness becomes profound. He reports he feels off balance. He denies that the room is spinning. He denies any nausea, vomiting, or diarrhea. Denies any chest pain or edema. Denies any cough, hemoptysis or shortness of breath, gross hematuria or dysuria. He denies any recent illnesses or sick contacts. Due to the increased dizziness and difficulty with ambulation, we were asked to see and evaluate him for admission. While in the emergency room, the patient had orthostatic vital signs, he was not found to be orthostatic. He had a CT of the head, which did not show any acute infarct. He received meclizine, lorazepam, and Valium in the emergency room with no improvement in his dizziness. Due to the continued dizziness, we were asked to see and evaluate him for admission. PAST MEDICAL HISTORY: Significant for atrial fibrillation, TIA, diverticulosis , hyperlipidemia, COPD, chronic diastolic heart failure, chronic kidney disease stage 3, left eye blindness, embolic CVA, history of bladder cancer with BCG treatment, neuropathy, severe GI bleed when on Coumadin therapy with a therapeutic INR. PAST SURGICAL HISTORY: 1. Colostomy with colostomy reversal. 2. Incision of skin lesion to the left buttock. 3. Pacemaker insertion. 4. Sigmoidectomy. 5. Abdominal aortic aneurysm repair. 6. Carotid endarterectomy. 7. Right knee arthroplasty. 8. Left nephrectomy. HOME MEDICATIONS: 1. Digoxin 0.0625 mg p.o. daily. 2. Furosemide 20 mg p.o. daily. 3. Vitamin B12 1000 mcg p.o. daily. 4. Vitamin D 1000 units p.o. daily. 5. Atorvastatin 80 mg p.o. daily. 6. Aspirin 81 mg Thursday, Thursday, Thursday. 7. Diltiazem 180 mg p.o. daily. 8. Gabapentin 1200 mg p.o. daily. ALLERGIES: To LATEX. FAMILY HISTORY: Mother had a CVA and diabetes. Father passed from emphysema. Half-sister with pleurisy. SOCIAL HISTORY: The patient is a former smoker, he quit approximately 25 years ago. Prior to that, he smoked 3 packs a day for 45 years. Denies any alcohol or illicit drug use. The patient is retired. He lives with his and daughter, Dorota Alfaro. Surrogate decision maker in the event he is unable to make his own decisions is his daughter, Dorota. He is a full code. REVIEW OF SYSTEMS: There was no documented fever. No unintended weight loss. Denies any chest pain or edema. Denies any cough, hemoptysis, or shortness of breath. No nausea, vomiting, diarrhea, or abdominal pain. No gross hematuria or dysuria. No focal weakness or sensory loss. No visual complaints. No dysphagia, arthralgias, myalgias, rashes, lesions. No psychosis or anxiety. A review of 14 systems was completed, all others were negative. PHYSICAL EXAMINATION GENERAL: At this time, the patient is alert, pleasant, and oriented, in no acute distress. VITAL SIGNS: Blood pressure 173/105, heart rate 77, respirations 18, temperature was 97.8, O2 saturation 95% on room air. HEENT: Head is atraumatic, normocephalic. Eyes: Pupils are equal and reactive to light. Extraocular eye movements are intact. RESPIRATORY: Lungs are clear to auscultation bilaterally. No wheezes, rales, or rhonchi. No accessory muscle use. CARDIOVASCULAR: The patient has an irregular rate and rhythm. S1, S2. No murmurs, rubs, or gallops. ABDOMEN: Soft and nontender. Bowel sounds are active x4. EXTREMITIES: There is no lower extremity edema. Pulses are +2 bilaterally. MUSCULOSKELETAL: There is no clubbing or cyanosis. He is able to move all 4 extremities with 5/5 strength. NEUROLOGIC: He is awake, alert, and oriented x3. Cranial nerves II through XII are grossly intact. [id number] is intact. Shoulder shrug is intact. No arm drift or leg drift is noted. Upon standing, the patient does lean to the right and forward and does report feeling off balance, subsides with sitting and lying. PSYCHOSOCIAL: The patient is calm and cooperative. SKIN: Intact. No rashes or lesions. DIAGNOSTIC STUDIES/LAB DATA: WBCs were 6.7, RBCs 5.38, hemoglobin 16.5, hematocrit was 49, platelet count 155. APTT was 36.2. Sodium 140, potassium 4.4, chloride 103, carbon dioxide was 30, anion gap was 7, BUN was 26, creatinine 1.05. Urine: Color was yellow, clear, pH was 7.0, specific gravity 1.019, urine protein was 2+, ketones was negative, blood was negative, nitrites were negative, bilirubin was negative, urobilinogen was negative, urine leukocyte esterase was negative, wbc's were absent, rbc's were 2+, bacteria was absent. Urine toxicology was within normal limits. Serum alcohol was less than 10. He had a chest x-ray. Radiologist's impression: Stigmata for chronic obstructive lung disease, mild cardiomegaly. No acute pulmonary or cardiac process was evident. He had a CT of the brain: Involutional changes and stigmata of chronic small vessel ischemic disease. No acute intracranial process was evident. He had an electrocardiogram, which showed AFib/Aflutter with a paced rhythm and a rate of 64. ASSESSMENT AND PLAN: Mr. Alfaro is an 83-year-old male with past medical history significant for atrial fibrillation, embolic cerebrovascular accident, diverticulosis, hyperlipidemia, chronic obstructive pulmonary disease, neuropathy, chronic diastolic heart failure, chronic kidney disease, left eye blindness, history of bladder cancer, who presented to the emergency room with complaints of dizziness and feeling off balance for 2 days. He will be admitted under observation for: 1. Dizziness. I suspect that this could be related to orthostatic hypotension as the patient only exhibits the dizziness and feeling off balance with standing. The patient did have orthostatic vital signs in the emergency room, which were within normal limits. We will repeat orthostatic vital signs to confirm that the patient is not orthostatic. This also could be related to a posterior infarct. I will consult Neurology for further recommendations. We will do neuro checks q.4 hours. He did have a CT of the head, which shows no acute infarct. In the event that this is related to orthostatic hypotension, I will give him mild IV hydration overnight and repeat orthostatic vital signs in the morning. 2. Atrial fibrillation. The patient does currently have a pacemaker. He is not on anticoagulation due to severe GI bleed in the past while on Coumadin and therapeutic INR. We will continue him on aspirin 81 mg Thursday, Thursday, Thursday. We will continue his diltiazem and digoxin as previously prescribed. 3. History of diastolic heart failure. At this time, given the patient's dizziness, I am going to hold his furosemide and give him gentle IV hydration overnight. His lungs are clear at this time. 4. Neuropathy. We will continue on Neurontin as previously prescribed. 5. Coronary artery disease. We will continue on aspirin 81 mg Thursday, Thursday, Thursday as previously prescribed and atorvastatin as previously prescribed. 6. Chronic obstructive pulmonary disease. The patient has no signs of exacerbation at this time. He is not on any maintenance medications at home. Continue supportive care. 7. Chronic kidney disease. The patient appears to be at baseline. We will continue to monitor his creatinine and avoid nephrotoxic medications. 8. History of bladder cancer. The patient was treated with BCG in the past. He should follow up with Urology as an outpatient as needed. 9. Fluids, electrolytes, and nutrition: The patient can have heart-healthy, decaf okay diet. 10. Code status: He is a full code. 11. DVT prophylaxis: He will be placed on heparin subcu. 12. Disposition: The patient will be placed under observation. TIME SPENT: Time spent on this admission was 60 minutes, greater than half that time was spent with the family discussing events leading thus far to his admission, obtaining my medical history and performing my physical exam, the other half of the time was spent implementing my plan of care. I have discussed this with my attending, Dr. Jossue Castro; he is in agreement with my plan. LITTLE PATEL, UTILITY SALES REPRESENTATIVE [id number]/CPS #: [id number] VINOD
--- NOTE | 2018-07-13 19:15 | CONS ---
NEUROLOGY CONSULTATION NOTE: DATE OF CONSULT: 07/13/18 CONSULTING PROVIDER: Dr. Amador. REASON FOR CONSULT: Dizziness. CHIEF COMPLAINT: Lightheadedness upon standing. HISTORY OF PRESENT ILLNESS: Mr. Mihir Alfaro is a pleasant 83-year-old right- handed man who has history of atrial fibrillation with no anticoagulation therapy due to history of abdominal aneurysms and the patient decided not to proceed with anticoagulation therapy given the concern for bleeding, left eye blindness after an artery to artery emboli following left ICA endarterectomy, chronic diastolic heart failure, chronic kidney disease, COPD, dyslipidemia who presented to [facility] ER on 07/13/18 for symptoms of postural lightheadedness. The patient stated that he has had a decrease in fluid intake the last few weeks. He used to drink at least 2 large bottles of sparkling water a day, but now had cut down to half to 1, approximately 8 to 16 ounces a day. The patient has also taking Lasix. On Thursday evening on 07/11/18, the patient developed symptoms of lightheadedness. He described the lightheadedness as a dizzy sensation, feeling like he was going to collapse. He denied any tinnitus, hearing loss, or vertigo. He denied any double vision. He is legally blind in the left eye. The symptoms last for a few minutes at least 3-4 or completely resolve as soon as he sits down or lies down. Currently , the patient is asymptomatic, but he is lying flat in the bed. Orthostatic vitals were checked in the ER, but reported to be normal; however, I rechecked the orthostatic vitals today in the presence of the bedside nurse and the patient's lying blood pressure was 178/100, sitting blood pressure was 166/92, standing dropped to 154/93. Please note that the blood pressure interval was obtained from lying to sitting within 3 minutes and then sitting to standing another 3 minutes or a total of 6 minutes in between the first to the last blood pressure measured. His heart rate did increase from the low 60s to 77. The patient clinically was symptomatic when he stood up. He denied any vertiginous sensation. The patient denied any focal weakness, slurred speech, swallowing difficulty, or impairment in his bowel or bladder functions. 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 CURRENT MEDICATIONS: 1. Cyanocobalamin 1000 mcg p.o. daily. 2. Vitamin D supplements 1000 units daily. 3. Aspirin 81 mg daily. 4. Diltiazem 180 mg p.o. daily. 5. Gabapentin 1200 mg daily. 6. Digoxin 0.0625 mg p.o. daily. 7. Furosemide 20 mg p.o. daily. 8. Atorvastatin 80 mg daily. ALLERGIES: To latex. FAMILY HISTORY: No history of stroke or seizures. SOCIAL HISTORY: The patient is . He denied any tobacco or alcohol use. REVIEW OF SYSTEMS: A 14-point review of systems was obtained and otherwise negative except for what was mentioned in the HPI. PHYSICAL EXAMINATION: Vitals: Temperature of 97.2, pulse of 68, respiratory rate of 16, oxygen saturation of 97%, blood pressure of 180/96. General: Well - nourished, well-developed man, in no acute distress. Head: Normocephalic without obvious abnormality. Eyes: Legally blind on the left eye. Neck: Supple and symmetrical with no carotid bruits. Lungs: Clear to auscultation bilaterally. Cardiovascular: Irregular rhythm with normal S1, S2. Slight holosystolic murmur graded as 2/6 was heard over the left chest wall. Extremities: Normal range of motion with no cyanosis. No hammertoes or high arches. Skin: No skin lesions or lacerations. Psych: Affect - broad and normal mood. Easy to establish rapport. Neurological Examination: Mental status: Awake and alert, oriented to person, place, time, and general circumstance. Speech and language including expression, naming, repetition, and comprehension were assessed and found to be normal. Cranial nerves: Normal to confrontation testing. Pupil is reactive on the right, slightly dilated and unreactive on the left. Extraocular muscles are intact. Sensation is intact in the forehead, cheeks, and jaw region bilaterally. There is no facial droop. He is able to hear throughout the history process. Symmetrical palatal elevation. Normal strength against resistance. Tongue is symmetrical and midline with no atrophy or fasciculation. Motor Examination: No abnormal movement or pronator drift. 5/5 strength in the upper and lower extremities bilaterally. Reflexes 1+ in the brachioradialis, biceps, triceps, patella, ankle , and flexor plantar response bilaterally. Sensation is intact to light touch throughout. Coordination: Normal gmyorb-pa-juoz and rapid alternating movement. Gait: Very cautious gait as the patient is concerned that he may fall given his drop in blood pressure. He was holding on to the examiner. He typically uses a cane to ambulate. He has a wide-based gait. No ataxia, although there was reported deviation or swaying towards the right side, I was unable to appreciate that on examination today. ASSESSMENT: Mr. 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 Orthostatic vitals obtained this afternoon were positive with his systolic blood pressure dropping from 178 lying to 154 standing. The patient did become symptomatic. The patient does not have any focal brainstem signs or focal motor weakness. He denied any vertigo. The patient has some hesitant and cautious gait because he feels like he is going to develop lightheadedness and possibly collapse. Therefore, he is very cautious and slow when ambulating. 1. Orthostatic hypotension. 2. Remote history of stroke involving the left ophthalmic artery status post carotid endarterectomy. 3. Hypertension. 4. Systolic heart failure. 5. Atrial fibrillation, not on anticoagulation due to concern for hemorrhage and this is the patient's choice. 6. Dyslipidemia. RECOMMENDATIONS: Start IV fluids as the patient may be dehydrated. Lasix has been held. We discussed compressive stockings and appropriate postures especially when standing to minimize or prevent any rapid movement that would drop his blood pressure. I do not recommend any further workup. The patient had a CT of the head without contrast that showed no evidence of intracranial abnormalities. He has no clinical signs to suspect stroke, TIA, or seizures. TIME SPENT: More than 50 minutes were spent obtaining history, examining the patient, and discussing the treatment plan as mentioned above. [id number]/[facility] #: [id number] [facility] CENTERIan
[2018-07-13] MEDS ORDERED: Gabapentin CAP(*) 300 MG PO SCH ×2 (21:00)
[2018-07-13] MEDS ORDERED: Atorvastatin* 80 MG TAB PO SCH (21:00)
[2018-07-13] MEDS: Meclizine TAB* 12.5 MG PO SCH (21:47)
[2018-07-14] MEDS: Heparin VIAL(*) 5000 UNITS/ML VIAL (FIVE THOUSAND) SUBCUT SCH ×2 (07:13→14:48)
[2018-07-14] MEDS: Meclizine TAB* 12.5 MG PO SCH ×2 (07:13→14:48)
[2018-07-14 07:36] LABS: ABS Basophils 0 10^3/ul (0-0.2); ABS Eosinophils 0.1 10^3/ul (0-0.6); ABS Monocytes 0.5 10^3/ul (0-0.8); ABS Neutrophils 3.9 10^3/ul (1.5-7.7); ABS Nucleated RBC 0 10^3/ul; Eosinophil % 1.9 %; Hematocrit 49 % (42-52); Hemoglobin 16.3 g/dl (14.0-18.0); Lymphocyte % 17.6 %; Mean Corpuscular HGB Conc 34 g/dl (31-36); Mean Corpuscular Hemoglobin 31 pg (27-31); Mean Corpuscular Volume 91 fL (80-94); Mean Platelet Volume 9.9 fL (7.4-10.4); Nucleated Red Blood Cells % 0; Platelet Count 142 10^3/ul (150-450); Red Blood Count 5.34 10^6/ul (4.00-5.40); Red Cell Distribution Width 17 % (10.5-15); White Blood Count 5.5 10^3/ul (3.5-10.8)
[2018-07-14 08:03] LABS: BUN/Creatinine Ratio 26.4 (8-20); Calcium 9.2 mg/dL (8.6-10.3); EGFR African American 95.8 (>60); EGFR Non-African American 79.2 (>60)
[2018-07-14] MEDS ORDERED: Cyanocobalamin TAB* 500 MCG PO SCH (09:00)
[2018-07-14] MEDS ORDERED: Gabapentin CAP(*) 400 MG PO SCH (09:00)
[2018-07-14] MEDS ORDERED: Gabapentin CAP(*) 300 MG PO SCH (09:00)
[2018-07-14] MEDS ORDERED: Cholecalciferol TAB* 1000 UNITS PO SCH (09:00)
[2018-07-14] MEDS: Diltiazem CD CAP* 180 MG PO SCH (09:11)
[2018-07-14] MEDS: Digoxin TAB* 0.125 MG PO SCH (09:12)
[2018-07-14 11:57] LABS: Digoxin 0.6 ng/ml (0.8-2.0)
[2018-07-14] MEDS ORDERED: Aspirin EC TAB* 81 MG TAB.EC PO SCH (14:01)
[2018-07-14 15:26] VITALS: BP 121/75
--- NOTE | 2018-07-14 21:32 | DS ---
CC: Dr. Iliana Malcolm * DISCHARGE SUMMARY: DATE OF ADMISSION: 07/13/18 DATE OF DISCHARGE: 07/14/18 PRIMARY CARE PROVIDER: Dr. Iliana Malcolm. MY ATTENDING WHILE IN THE HOSPITAL: Dr. Lilly David.* (DICTATED BY STANFORD ARROYO) PRIMARY DISCHARGE DIAGNOSES: 1. Dehydration. 2. Orthostatic hypotension. SECONDARY DISCHARGE DIAGNOSES: 1. Atrial fibrillation. 2. Transient ischemic attack. 3. Diverticulosis with colostomy and reversal. 4. Chronic obstructive pulmonary disease. 5. Chronic diastolic heart failure. 6. Chronic kidney disease. 7. Left eye blindness. 8. Bladder cancer, status post BCG. 9. Neuropathy. 10. History of gastrointestinal bleeding. 11. History of abdominal aortic aneurysm repair. 12. Carotid endarterectomy causing blindness. 13. Left nephrectomy. STUDIES DONE WHILE IN THE HOSPITAL: Chest x-ray from 07/13/18 shows stigmata of obstructive lung disease, mild cardiomegaly, no acute pulmonary or cardiac process present. Electrocardiogram from 07/13/18 shows paced rhythm, left axis deviation, atrial flutter. Brain CT from 07/13/18 read as involutional changes , chronic small vessel ischemic disease, no acute intracranial process evident. MEDICATIONS AT DISCHARGE: 1. Vitamin B12 1000 units p.o. daily. 2. Vitamin D 1000 units p.o. daily. 3. Aspirin 81 mg p.o. Thursday, Thursday, Thursday. 4. Diltiazem 180 mg p.o. daily. 5. Neurontin 1500 mg p.o. at bedtime. 6. Digoxin 0.0625 mg p.o. daily. 7. Furosemide 10 mg p.o. daily. 8. Lipitor 80 mg p.o. daily. 9. Gabapentin 300 mg p.o. daily. 10. Tylenol 650 mg p.o. q.4 hours as needed. HOSPITAL COURSE: This is a brief summary of the patient's presentation. For more details, please see the history and physical from Little Patel NP on 07/13/18. In brief, the patient is an 83-year-old male with past medical history significant for the above, who presented to the emergency department with lightheadedness, worse with movement and standing that subsides when lying down. The patient's dizziness was at times profound. He denied sheng vertigo or any other associated symptoms or any other recent changes in his medications or health. The patient was unable to ambulate, so was admitted to the hospital. The patient had positive orthostatic vital signs while in the emergency department. The patient was seen in consultation by Dr. Shilo Sarabia who did not believe that underlying neurologic process was at play here and recommended rehydration and rechecking of orthostatic vital signs in the morning. The patient had laboratory studies, which showed an elevated BUN and creatinine ratio, elevated bilirubin and alkaline phosphatase, apparently slightly elevated BNP, and no other significant abnormalities. The patient's digoxin level was 0.6. The patient was hydrated overnight with 1 L of IV fluids and additionally took in 1200 mL of oral fluid. The patient felt back to his baseline in the morning. The patient had no other abnormalities. The patient had a repeat orthostatic vital signs which showed a moderate decrease in the blood pressure but no symptoms of tachycardia. The patient was stable enough for discharge on 07/14/18. PHYSICAL EXAM AT DISCHARGE: General: The patient is an 83-year-old male who appears stated age, sitting comfortably in bed, in no acute distress. HEENT: Head normocephalic, atraumatic. Sclerae anicteric. No conjunctival injection. Nasal mucosa moist. Oral mucosa moist. No pharyngeal erythema, discharge, or exudate. Neck: Supple and nontender. No lymphadenopathy. No carotid bruits auscultated. No JVD. Cardiac: Regular rate and rhythm. No clicks, murmurs, gallops, or rubs. Pulses are 2+ in the dorsalis pedis, posterior tibialis, and radial areas. Respiratory: Clear to auscultation bilaterally. No wheezes, rales, or rhonchi. Good air exchange bilaterally. Abdomen: Soft, nontender, nondistended. Bowel sounds present in all 4 quadrants. No hepatosplenomegaly, no abdominal bruits auscultated, no hepatojugular reflux. Genitourinary: No suprapubic or CVA tenderness. Skin: Clean, dry, intact. No rash. Neuro: Cranial nerves II through XII intact. No focal deficits. Alert and oriented x3. Psychiatric: Pleasant and cooperative. DISCHARGE PLAN: The patient will be discharged to home. The patient has been encouraged to drink more water. The patient's Lasix dosing has been cut in half. The patient has been provided with LUNA stockings and encouraged to wear them during the day and also to take care while sitting on the edge of the bed and standing. The patient should have a heart healthy diet without caffeine. The patient should follow up with his primary care provider in 1 week for general medical management. The patient should engage in activities as tolerated with the above caveats. The patient should return to the hospital for passing out, chest pain, or other alarming symptoms. STANFORD ARROYO [id number]/[facility]PS #: [id number] MTDD
== END 2018-07-14 17:58 | disposition home or self-care (01) ==
LOC: ED 10:23 → MEDTELE 13:54
PROVIDERS: ADMIT Internal Medicine; ATTEND Internal Medicine
DX: E86.0 Dehydration (principal); I95.1 Orthostatic hypotension; R42 Dizziness and giddiness; J44.9 Chronic obstructive pulmonary disease, unspecified; Z85.51 Personal history of malignant neoplasm of bladder; Z87.891 Personal history of nicotine dependence; I48.91 Unspecified atrial fibrillation; Z79.01 Long term (current) use of anticoagulants; K57.90 Diverticulosis of intestine, part unspecified, without perforation or abscess without bleeding; I50.32 Chronic diastolic (congestive) heart failure; I12.9 Hypertensive chronic kidney disease with stage 1 through stage 4 chronic kidney disease, or unspecified chronic kidney disease; N18.9 Chronic kidney disease, unspecified; H54.40 Blindness, one eye, unspecified eye; G62.9 Polyneuropathy, unspecified; K92.2 Gastrointestinal hemorrhage, unspecified; Z79.82 Long term (current) use of aspirin
CPT/HCPCS: 36415; 70450; 71046; 80048; 80053; 80162; 80307; 80320; 81003; 81015; 82550; 83605; 83735; 83880; 84443; 84484; 85025; 85730; 86140; 93005; 96372; 99285; A9270-GY; G0378; G0480; G8978-GP-CJ; G8979-GP-CI; J1644

== ENCOUNTER 2018-09-12 03:27 | Inpatient (IN) | payer MEDICARE ==
--- NOTE | 2018-09-12 03:59 | ED ---
Neurological HPI - HPI Summary HPI Summary: An 83 y/o male accompanied by his daughter and presents to [facility] with a chief complaint of having a loss of words. Per daughter the patient has had this loss of words since yesterday morning, but his notes that it may have been two days ago. The patient has a Hx of TIAs and uses a walker due to weakness in his arms and legs. The patient also reports nausea and mild CP since the morning of 09/10/18. At triage he rated his pain as a 2/10 in severity. The patient has a pacemaker, Hx of atrial fibrillation and aneurysms. Per daughter, the patient forgot his weight at triage, and in the ED thought that a surgery was 1 year ago when it was actually 10 years ago. - History of Current Complaint Chief Complaint: EDChestPainROMI Stated Complaint: CHEST PAIN PER DAUGHTER Time Seen by Provider: 09/12/18 03:33 Hx Obtained From: Patient, Family/Collar Baster Onset/Duration: Sudden Onset, Started days ago, Still Present Timing: Intermittent Episodes Lasting: - unknown Onset Severity: Mild Current Severity: None Pain Intensity: 2 Pain Scale Used: 0-10 Numeric Character: Weak, Confusion Aggravating: Nothing Alleviating: Nothing Associated Signs and Symptoms: Positive: Weakness, Chest Pain. Negative: Fever - Additional Pertinent History Primary Care Physician: FAIZA - Allergy/Home Medications Allergies/Adverse Reactions: Allergies Allergy/AdvReac Type Severity Reaction Status Date / Time latex Allergy Rash Verified 07/13/18 10:54 PMH/Surg Hx/FS Hx/Imm Hx Endocrine/Hematology History: Denies: Hx Diabetes, Hx Thyroid Disease Cardiovascular History: Reports: Hx Aneurysm, Hx Hypertension - ON MEDICATION, Hx Pacemaker/ICD, Other Cardiovascular Problems/Disorders - A-fib, pacemaker Respiratory History: Reports: Hx Chronic Obstructive Pulmonary Disease (COPD) - Emphyzema, Hx Sleep Apnea - EARLY , Other Respiratory Problems/Disorders - EMPHYSEMA Denies: Hx Asthma GI History: Reports: Hx Diverticulosis, Other GI Disorders - diverticulitis Denies: Hx Ulcer History: Reports: Other Problems/Disorders - RIGHT KIDNEY ONLY FUNCTIONINGT KIDNEY Musculoskeletal History: Reports: Hx Arthritis - BILATERAL FEET AND HAND Sensory History: Reports: Hx Cataracts, Hx Contacts or Glasses - GLASSES, Hx Hearing Problem Denies: Hx Hearing Aid Opthamlomology History: Reports: Hx Cataracts, Hx Contacts or Glasses - GLASSES Neurological History: Reports: Hx Migraine - AGE 18, Hx Transient Ischemic Attacks (TIA) - [id number] - Cancer History Cancer Type, 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 AAA REPAIR. Hx Anesthesia Reactions: No - Immunization History Date of Tetanus Vaccine: Unk Date of Influenza Vaccine: Fall 2013 Infectious Disease History: No Infectious Disease History: Denies: Hx Hepatitis, Hx Human Immunodeficiency Virus (HIV), Hx Shingles, Hx Tuberculosis, History Other Infectious Disease, Traveled Outside the [place] in Last 30 Days - Family History Known Family History: Positive: Renal Disease - one kidney - Social History Alcohol Use: Rare Alcohol Amount: WINE Hx Substance Use: No Substance Use Type: Reports: None Hx Tobacco Use: No - quit 20 yrs ago, smoked 3ppd for 45 yrs Smoking Status (MU): Former Smoker Type: Cigarettes Review of Systems Negative: Fever Positive: Chest Pain Positive: Nausea Neurological: Other - positive: "loss of words" Positive: Weakness All Other Systems Reviewed And Are Negative: Yes Physical Exam - Summary Physical Exam Summary: Appearance: Well-appearing, Well-nourished, lying in bed comfortably Skin: Warm, dry, no obvious rash Eyes: sclera anicteric, no conjunctival pallor ENT: mucous membranes moist, pharynx appears normal Neck: Supple, nontender Respiratory: Clear to auscultation, no signs of respiratory distress Cardiovascular: Normal S1, S2. No murmurs. Normal distal pulses in tibial and radial bilaterally. Abdomen: Soft, nontender, normal active bowel sounds present, ventral hernia nontender Musculoskeletal: Normal, Strength/ROM Intact Neurological: A&Ox3, awake and alert, mentation is normal, speech is fluent and appropriate Psychiatric: affect is normal, does not appear anxious or depressed Triage Information Reviewed: Yes Vital Signs On Initial Exam: Initial Vitals Temp Pulse Resp BP Pulse Ox 97.6 F 114 18 158/127 94 09/12/18 03:29 09/12/18 03:29 09/12/18 03:29 09/12/18 03:29 09/12/18 03:29 Vital Signs Reviewed: Yes - [place] Coma Scale Best Eye Response: 4 - Spontaneous Best Motor Response: 6 - Obeys Commands Best Verbal Response: 5 - Oriented Coma Scale Total: 15 Diagnostics - Vital Signs Vital Signs Temp Pulse Resp BP Pulse Ox 09/12/18 03:29 97.6 F 114 18 158/127 94 - Laboratory Result Diagrams: 09/12/18 04:12 09/12/18 04:12 Lab Statement: Any lab studies that have been ordered have been reviewed, and results considered in the medical decision making process. - CT brain CT Interpretation Completed By: Radiologist Summary of CT Findings: No acute intracranial abnormality. ED physician has reviewed this imaging report. head/neck CTA CT Interpretation Completed By: Radiologist Summary of CT Findings: HEAD IMPRESSION: No hemodynamically significant stenosis or large vessel occlusion. ED physician has reviewed this imaging report. NECK IMPRESSION: 1. Stenosis involving the proximal left cervical ICA measures between 60% and. 70%. 2. Stenosis of the proximal right cervical ICA measures less than 50%. 3. Suspect moderate stenosis involving the proximal left V1 segment. ED physician has reviewed this imaging report. - EKG 03:39 Cardiac Rate: Other Rate - Atrial fibrillation at 95 bpm EKG Rhythm: Atrial Fibrillation Summary of EKG Findings: Atrial fibrillation at 95 bpm, controlled rate, inferior Q waves, anterolateral T-wave inversions. NIH Scale - NIH Scale Level of Consciousness: Alert/Keenly Responsive Ask Patient the Month and His/Her Age: Both Correct Ask Pt to Open/Close Eyes and Bilingual Recruiter/Release Non-Paretic Hand: Both Correctly Best Gaze (Only Horizontal Eye Movement): Normal Visual Field Testing: No Visual Loss Facial Paresis-Pt to Smile & Close Eyes or Grimace Symmetry: Normal/Symmetrical Motor Function - Right Arm: No Drift-Holds 10 Seconds Motor Function - Left Arm: No Drift-Holds 10 Seconds Motor Function - Right Leg: No Drift-Holds 10 Seconds Motor Function - Left Leg: No Drift-Holds 10 Seconds Limb Ataxia-Must be out of Proportion to Weakness Present: Absent Sensory (Use Pinprick to Test Arms/Legs/Trunk/Face): Normal Best Language (Describe Picture, Name Items): No Aphasia Dysarthria (Read Several Words): Normal Extinction and Inattention: No Abnormality Total Score: 0 Course/Dx - Course Course Of Treatment: An 83 y/o male accompanied by his daughter and presents to [facility] with a chief complaint of having a loss of words. Per daughter the patient has had this loss of words since yesterday morning, but his notes that it may have been two days ago. The patient has a Hx of TIAs and uses a walker due to weakness in his arms and legs. The patient also reports nausea and mild CP since the morning of 09/10/18. At triage he rated his pain as a 2/10 in severity. The patient has a pacemaker, Hx of atrial fibrillation and aneurysms. Per daughter, the patient forgot his weight at triage, and in the ED thought that a surgery was 1 year ago when it was actually 10 years ago. The physical exam revealed a nontender ventral hernia. EKG at 03:39 showed Atrial fibrillation at 95 bpm, controlled rate, inferior Q waves, anterolateral T-wave inversions. Bloodwork and chemistries obtained. Troponin of 0.04 at 04:12. Brain CT impression: No acute intracranial abnormality. Head/neck CTA impression: HEAD IMPRESSION: No hemodynamically significant stenosis or large vessel occlusion. NECK IMPRESSION: 1. Stenosis involving the proximal left cervical ICA measures between 60% and. 70%. 2. Stenosis of the proximal right cervical ICA measures less than 50%. 3. Suspect moderate stenosis involving the proximal left V1 segment. Case discussed with Dr. David, hospitalist, who accepted the patient for admission. - Physician Notifications Discussed Care Of Patient With: Lilly David Time Discussed With Above Provider: 05:56 Instructed by Provider To: Admit As Inpatient Discharge - Sign-Out/Discharge Documenting (check all that apply): Patient Departure - admit Patient Received Moderate/Deep Sedation with Procedure: No - Discharge Plan Condition: Fair Disposition: ADMITTED TO [facility] Referrals: Iliana Malcolm MD [Primary Care Provider] - - Attestation Statements Document Initiated by Scribe: Yes Documenting Scribe: Bandar Flor Provider For Whom Scribe is Documenting (Include Credential): Harshad Mejia MD Scribe Attestation: Bandar Kong, scribed for Harshad Mejia MD on 09/12/18 at 0603. Status of Scribe Document: Ready
[2018-09-12 04:19] LABS: Hematocrit 52 % (36-46); Hemoglobin 17.8 g/dL (14.0-18.0); Mean Corpuscular HGB Conc 34 g/dL (31-36); Mean Corpuscular Hemoglobin 31 pg (27-31); Mean Corpuscular Volume 90 fL (80-94); Mean Platelet Volume 9.7 fL (7.4-10.4); Platelet Count 159 10^3/uL (150-450); Red Blood Count 5.82 10^6 /uL (4.18-5.48); Red Cell Distribution Width 16 % (10.5-15); White Blood Count 8.5 10^3/uL (3.5-10.8)
[2018-09-12 04:24] LABS: INR 1.03 (0.77-1.02)
[2018-09-12 04:25] LABS: ABS Basophils 0 10^3/ul (0-0.2); ABS Eosinophils 0 10^3/ul (0-0.6); ABS Lymphocytes 0.6 10^3/ul (1.0-4.8); ABS Monocytes 0.5 10^3/ul (0-0.8); ABS Neutrophils 7.3 10^3/ul (1.5-7.7); ABS Nucleated RBC 0 10^3/ul; Eosinophil % 0.2 %; Lymphocyte % 6.9 %; Nucleated Red Blood Cells % 0.1
[2018-09-12 04:36] LABS: ALT 17 U/L (7-52); AST 20 U/L (13-39); Albumin 4.1 g/dL (3.2-5.2); Albumin/Globulin Ratio 1.4 (1-3); Alkaline Phosphatase 108 U/L (34-104); Anion Gap 10 mmol/L (2-11); BUN/Creatinine Ratio 17.8 (8-20); Blood Urea Nitrogen 16 mg/dL (6-24); CO2 Carbon Dioxide 24 mmol/L (22-32); Calcium 9.7 mg/dL (8.6-10.3); Chloride 101 mmol/L (101-111); EGFR Non-African American 80.2 (>60); Glucose 104 mg/dL (70-100); Potassium 4.1 mmol/L (3.5-5.0); Sodium 135 mmol/L (135-145); Total Protein 7.1 g/dL (6.4-8.9)
[2018-09-12 04:39] LABS: Troponin I 0.04 ng/mL (<0.04)
[2018-09-12 04:40] LABS: Alcohol < 10 mg/dL (<10)
[2018-09-12] MEDS ORDERED: Iodixanol* (CONTRAST) 320 MG/ML 100 ML SDV IV ONE ×2 (05:00→06:53)
[2018-09-12] MEDS ORDERED: Al Hydrox/Mg Hydrox/Simet LIQ* 30 ML UDC PO PRN (07:01)
[2018-09-12] MEDS ORDERED: Magnesium Hydroxide LIQ* 30 ML UDC PO PRN (07:01)
[2018-09-12] MEDS ORDERED: Acetaminophen TAB* 325 MG PO PRN (07:01)
[2018-09-12] MEDS ORDERED: Diltiazem CD CAP* 180 MG PO ONE (07:21)
[2018-09-12] MEDS ORDERED: hydrALAZINE IV* 20 MG/ML VIAL IV SLOW PU PRN (07:22)
[2018-09-12] MEDS ORDERED: hydrALAZINE IV* 20 MG/ML VIAL ONE (07:30)
[2018-09-12 07:43] LABS: Cholesterol 136 mg/dL; HDL Cholesterol 39.1 mg/dL; LDL Cholesterol 74 mg/dL; Triglycerides 114 mg/dL
[2018-09-12] MEDS ORDERED: Diltiazem CD CAP* 180 MG PO SCH (09:00)
[2018-09-12] MEDS: Atorvastatin* 80 MG TAB PO SCH (10:30)
[2018-09-12] MEDS: Furosemide TAB* 20 MG PO SCH (10:30)
[2018-09-12] MEDS: Digoxin TAB* 0.125 MG PO SCH (10:31)
[2018-09-12] MEDS: Docusate CAP* 100 MG PO SCH ×2 (10:31→21:28)
[2018-09-12] MEDS: Cyanocobalamin TAB* 500 MCG PO SCH (10:31)
[2018-09-12] MEDS: Aspirin EC TAB* 81 MG TAB.EC PO SCH (10:32)
[2018-09-12 11:21] LABS: Troponin I 0.05 ng/mL (<0.04)
--- NOTE | 2018-09-12 11:40 | HP ---
CC: Dr. Malcolm; Dr. Page, cardiology; Dr. Marks, Neurology; Dr. Dewitt * HISTORY AND PHYSICAL: DATE OF ADMISSION: 09/12/18 PRIMARY CARE PROVIDER: Dr. Malcolm. CHIEF COMPLAINT: Chest pain/difficulty word finding. HISTORY OF PRESENT ILLNESS: Mihir Alfaro is an 83-year-old male with history of chronic atrial fibrillation, not on anticoagulation due to gastrointestinal bleed presents today complaining of chest pain and difficulty word finding that developed approximately 2 days ago. He is going to be placed on observation to r/o TIA and evaluate etiology of chest pain. PAST MEDICAL HISTORY: 1. 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 2. History of diverticulitis, status post sigmoidectomy, colostomy, and colostomy reversal for diverticulitis. 3. Dyslipidemia. 4. History of COPD, not on oxygen. 5. History of chronic kidney disease, stage 3. 6. History of diastolic heart failure. 7. History of bladder cancer, status post BCG treatment. 8. History of peripheral neuropathy with numbness of bilateral feet, chronic. 9. Status post abdominal aortic aneurysm repair a year ago. 10. History of transient ischemic attack in the past. 11. Status post pacemaker placement. The patient was told by the interventional radiologist that one of his kidneys is "nonfunctioning." MEDICATIONS: At home, include: 1. Vitamin B12 1000 mcg daily. 2. Vitamin D 1000 units daily. 3. Aspirin 81 mg 3 times a week. 4. Diltiazem CD 180 mg daily. 5. Neurontin 1200 mg at bedtime. 6. Digoxin 0.0625 mg daily. 7. Furosemide 10 mg daily. 8. Lipitor 80 mg daily. 9. Tricor 160 mg daily. ALLERGIES: LATEX. FAMILY HISTORY: Positive for mother with CVA and diabetes. Father had a history of COPD. SOCIAL HISTORY: The patient has a history of smoking, quit 25 years ago. He has a history of 45 years smoking, 3 packs a day. Denies any alcohol or illicit drug use. He is retired and lives with his . His daughter, Dorota Alfaro, is the surrogate. He is a full code. REVIEW OF SYSTEMS: On review of systems, please see history of present illness. In addition to above mentioned, the patient stated that he does not have any shortness of breath with chest pain. The chest pain had been ongoing for the past 3 days and feels like "indigestion" and its worse in intensity was at 2/10. The patient is a very nonspecific historian. He also mentioned that the chest pain is pleuritic. He denies abdominal pain and stated that he has not had a bowel movement for the past 24 hours. The patient stated that he has unsteady gait and usually uses a cane or walker, but for the past 4 days, his gait had been more unsteady and had been using a walker. The patient's appetite had been poor, but he denies nausea and he has not really eaten well for the past 24 hours. The patient denies any fevers or cough. All the remaining 12 systems were reviewed with the patient and were otherwise negative. Please note that the patient is a very poor historian. PHYSICAL EXAMINATION GENERAL: The patient is a pleasant 83-year-old male, who is in no acute distress. The patient is a rather poor historian, but he is otherwise alert, awake, and oriented x3. VITAL SIGNS: Blood pressure 172/133, heart rate of 94 and regular, respiratory rate 22, oxygen saturation 95% on room air, temperature of 97.6. HEENT: Head: Atraumatic, normocephalic. Eyes: Pupils are uneven with left pupil being basically nonreactive to light and slightly lateral at 3 mm. The right pupil is at 2 mm, reactive to light. NECK: Supple, no JVD, no bruits bilaterally. RESPIRATORY: Clear to auscultation bilaterally. CARDIOVASCULAR: Irregularly irregular rhythm. No murmurs. ABDOMEN: Soft, nontender. Bowel sounds are present in all 4 quadrants. EXTREMITIES: There is no edema. Pulses are +2 bilaterally. No clubbing or cyanosis. NEUROLOGIC: On neuro evaluation, speech is clear. Cranial nerves II through XII grossly intact. Motor strength is 5/5 bilaterally. SKIN: On evaluation of the skin, no ecchymotic areas or rashes noted. DIAGNOSTIC STUDIES/LAB DATA: White blood cell count 8.5, hemoglobin 17, hematocrit 52, and platelets 159. Sodium was 135, potassium 4.1, chloride 101, carbon dioxide 24, BUN 16, and creatinine 0.9. Liver function tests were unremarkable apart from slight elevation of bilirubin of 2.0. Troponin of 0.04. Alkaline phosphatase is 108, which is similar to prior test from 07/13/18. Serum alcohol level was below 10. CT angiogram of the head and neck with contrast show, impression: "Stenosis involving the proximal left cervical ICA measures between 60% to 70%. There is also stenosis of the proximal right cervical ICA, measures less than 50%. Suspect moderate stenosis involving the proximal left V1 segment. On the vasculature of the head, there was no hemodynamically significant stenosis or large vessel occlusion." Brain CT, impression: "No acute intracranial abnormality." CT angiogram of the chest, abdomen, and pelvis to evaluate for aortic aneurysm is pending at the time of dictation. The patient's EKG show atrial fibrillation with 195 beats per minute with negative T wave in leads III and aVF as well as V4 and V6. Comparing with prior EKG from 07/13/18, at that point, the patient's EKG was paced. Comparing with an EKG from January 2018, the T waves in the V4 and V6 were similar as well as the inverted T waves in the inferior leads were similar. ASSESSMENT AND PLAN: 1. In regards to the patient's chest pain, it has been ongoing for 3 days now. The patient is a very poor historian and his complaints are somewhat nonspecific. He stated that his chest pain is 2/10 in intensity, but is pleuritic, but also constant. There were no aggravating or alleviating factors. Apart from that, he denied any dyspnea. At this point, due to the patient's significant history of abdominal aortic aneurysm, I believe that is important for the patient to have a CT angiogram of the chest, abdomen, and pelvis aorta to rule out thoracic aortic aneurysm and to evaluate the patient's repair of the abdominal aortic aneurysm. That is currently pending. 2. The patient had been complaining of difficulty word finding and that had been ongoing intermittently for a couple of days. Currently that resolved. To rule out transient ischemic attack, the patient is going to be observed on telemetry monitored bed. Dr. Dewitt will see the patient in consultation. He recommended echo with a bubble study. I will increase the patient's aspirin to daily from 3 times a week as the patient takes at home. 3. For patient's history of atrial fibrillation, it was just controlled on Cardizem and digoxin which is going to be continued. 4. The patient has uncontrolled hypertension at this point. His blood pressure was 170s at admission. I will place the patient with the morning dose of Cardizem CD and place on hydralazine on a p.r.n. basis. 5. For DVT prophylaxis, the patient is going to be placed on heparin subcutaneously. 6. The patient's code status is full. His surrogate is his daughter as mentioned above. TIME SPENT: Approximately 65 minutes was spent on the admission of this patient , more than half that time was spent [id number] with the patient during the interview and physical exam. [id number]/[facility] #: [id number] VINOD
[2018-09-12] MEDS: Heparin VIAL(*) 5000 UNITS/ML VIAL (FIVE THOUSAND) SUBCUT SCH ×2 (15:30→21:31)
[2018-09-12 17:01] LABS: Troponin I 0.07 ng/mL (<0.04)
--- NOTE | 2018-09-12 17:25 | PN ---
Subjective Date of Service: 09/12/18 Interval History: Pt seen this afternoon. He continues to have some difficulty finding words; for instance, unable to remember 's name. When asked if he has chest pain, he states that he has had 3 days of indigestion. He states that pain is tender to palpation, but is no longer painful at this time. Pt c/o unsteady gate, states he uses a cane/walker usually. Objective Active Medications: Acetaminophen (Tylenol Tab*) 650 mg PO Q4H PRN Al Hydrox/Mg Hydrox/Simethicone (Maalox Plus*) 30 ml PO Q6H PRN Aspirin (Aspirin Ec Tab*) 81 mg PO DAILY NARESH Atorvastatin Calcium (Lipitor*) 80 mg PO DAILY NARESH Cyanocobalamin (Vitamin B12 Tab*) 1,000 mcg PO DAILY NARESH Digoxin (Lanoxin Tab*) 0.0625 mg PO DAILY NARESH Docusate Sodium (Colace Cap*) 100 mg PO BID NARESH Furosemide (Lasix Tab*) 10 mg PO DAILY NARESH Gabapentin (Neurontin Cap(*)) 1,200 mg PO BEDTIME NARESH Heparin Sodium (Porcine) (Heparin Vial(*)) 5,000 units SUBCUT Q8HR NARESH Hydralazine HCl (Apresoline Iv*) 5 mg IV SLOW PU Q6H PRN Sodium Chloride (Ns 0.9% 1000 Ml) 1,000 mls @ 75 mls/hr IV PER RATE NARESH Magnesium Hydroxide (Milk Of Magnesia Liq*) 30 ml PO Q4H PRN Vital Signs: Temp Pulse Resp BP Pulse Ox 98.5 F 86 18 142/83 97 09/12/18 11:16 09/12/18 11:16 09/12/18 11:16 09/12/18 11:16 09/12/18 11:16 Oxygen Devices in Use Now: None Appearance: Pt is sitting up in bed. He appears well. He is in no acute distress. Eyes: No Scleral Icterus - L pupil non reactive to light- pt blind in L eye Ears/Nose/Mouth/Throat: NL Teeth, Lips, Gums, Clear Oropharnyx, Mucous Membranes Moist Neck: NL Appearance and Movements; NL JVP, Trachea Midline Respiratory: Symmetrical Chest Expansion and Respiratory Effort, Clear to Auscultation Cardiovascular: NL Sounds; No Murmurs; No JVD, No Edema, - - Irregular rate, rhythm Abdominal: NL Sounds; No Tenderness; No Distention, No Hepatosplenomegaly Lymphatic: No Cervical Adenopathy Extremities: No Edema, No Clubbing, Cyanosis Neurological: NL Sensation, NL Muscle Strength and Tone Result Diagrams: 09/12/18 04:12 09/12/18 04:12 Assess/Plan/Problems-Billing Assessment: Pt is an 83yom with PMHx AAA, HTN, AF with PPM/ICD and no anticoag d/t h/o GIB, COPD, TIA, bladder ca, CKD III presents with CP, can't find words. - Patient Problems (1) Cerebrovascular accident Comment: -Nuerology consulted and suspect CVA d/t AF without anticoagulation vs carotid -Echo ordered for a.m. to search for PFO -Neurology recommendes discussion with PCP for treatment with anticoag or plavix in setting of h/o GIB (see below) (2) Chest pain Comment: -Pt c/o pleuritic chest pain that feels like indigestion and is TTP, but states it has resolved. Trop is slightly elevated with no EKG changes -Continue to trend troponins -Consider outpatient stress test, as pt likely had CVA and is not a candidate for stress test at this time (3) Contraindication to anticoagulation therapy Current Visit: No Status: Acute Priority: High Onset Date: 10/02/14 Code (s): Z53.09 - PROC/TRTMT NOT CARRIED OUT BECAUSE OF CONTRAINDICATION SNOMED Code(s): 853086977 Comment: -Pt has a h/o GI bleed -Spoke with Dr. Dewitt. Likely pt had stroke d/t either AF or carotid stenosis. Suggests discussion with PCP regarding ASA + anticoagulation for AF or ASA + plavix for stenosis, depending on what the echo shows/what most likely causative agent is. -Neuro states that carotid disease is significant enough for surgery, but unsure if pt is a good candidate. Pt has a vascular surgeon who should be consulted and weigh in on matter. (4) Full code status (5) DVT prophylaxis Comment: -Heparin SQ Status and Disposition: Observation. Discharge when stable.
[2018-09-12 17:34] LABS: Urine Appearance Clear; Urine Bacteria Absent (Absent); Urine Bilirubin Negative (Negative); Urine Blood 1+ (Negative); Urine Color Yellow; Urine Glucose Negative (Negative); Urine Ketones Negative (Negative); Urine Nitrite Negative (Negative); Urine Protein 3+(>=500 mg/dL) (Negative); Urine Red Blood Cell 2+(6-10/hpf) (Absent); Urine Specific Gravity > 1.060 (1.010-1.030); Urine Urobilinogen Negative (Negative); Urine White Blood Cell Absent (Absent)
[2018-09-12 20:02] LABS: Troponin I 0.06 ng/mL (<0.04)
[2018-09-12] MEDS: Gabapentin CAP(*) 400 MG PO SCH (21:29)
--- NOTE | 2018-09-12 21:44 | CONS ---
CONSULTATION REPORT: DATE OF CONSULT: 09/12/18 PATIENT OF: Dr. Marks, Dr. Hamilton, and Dr. Lilly David. HISTORY OF PRESENT ILLNESS: This is an 83-year-old right-handed man who had chest pain and acute word-finding difficulty yesterday. The family notes that he is still having difficulty with word finding and a little bit of confusion such as remembering names and places that were acute. He has a history of chronic atrial fibrillation, not on anticoagulation secondary to a significant GI bleed several years ago. He also has a history of left carotid endarterectomy with subsequent acute embolization blindness in the left eye, history of diverticulitis; status post sigmoidectomy, colostomy, and reversal, dyslipidemia, history of COPD; not on oxygen, history of chronic renal disease stage 3, history of diastolic heart failure, history of bladder cancer, history of peripheral neuropathy with bilateral feet numbness; followed by Dr. Wheeler and then by Dr. Marks, status post abdominal aortic aneurysm repair, history of TIA in the past, status post pacemaker placement. MEDICATIONS: At home, include: 1. Vitamin B12 at 1000 mcg daily. 2. Vitamin D 1000 units daily. 3. Aspirin 81 mg 3 times a week. 4. Diltiazem CD 180 mg daily. 5. Neurontin 1200 mg at bedtime. 6. Digoxin 0.0625 mg daily. 7. Furosemide 10 mg daily. 8. Lipitor 80 mg daily. 9. Tricor 160 mg daily. ALLERGIES: He is allergic to LATEX. FAMILY HISTORY: Positive for stroke and diabetes. Father had COPD. SOCIAL HISTORY: The patient has a history of smoking and he quit 25 years ago. He has a 45-year history, 3 packs a day. He does not drink alcohol or use drugs. He lives with his . REVIEW OF SYSTEMS: Positive in addition for chest pain for the past 3 days' time and feels like indigestion. Review of systems is, otherwise, negative in all 14 spheres. PHYSICAL EXAMINATION: On exam, temperature 98.5, pulse 86, respirations 18, and blood pressure 142/83. He is alert and oriented, but he has some word finding difficulty and difficulty naming objects. Cranial nerves II through XII were intact, other than blind left eye and he has a slight right facial droop. He has a right pronator drift, but strength is 5/5 bilaterally. Sensation decreased in a glove stocking distribution to touch. Reflexes were 1 with trace ankle jerks. Toes were equivocal to downgoing. Chest: Clear. Cardiovascular: Regular rate and rhythm. Abdomen: Soft with positive bowel sounds. DIAGNOSTIC STUDIES/LAB DATA: His CT scan was reviewed and it showed diffuse hypodensities consistent with widespread white matter disease. His CTA showed showed 60% to 70% stenosis of his left carotid artery. Labs include white count of 8.5, hematocrit 52, platelets 159. INR 1.03. LDL 74. Normal CMP, other than glucose 104. Serum alcohol less than 10. ASSESSMENT AND PLAN: Mihir most likely has a small left temporal stroke with mild right pronator drift and a mild aphasia. He is only on aspirin 3 times a week and he, unfortunately, has multiple risk factors for stroke, namely, his atrial fibrillation and his cardiovascular risk factors including a 60% to 70% carotid stenosis. I discussed that given this degree of stenosis, he would be at least considered for redo carotid surgery, but I think it is unclear if it was his carotids that caused this or his atrial fibrillation and he has significant surgical risk factors, so it will be appropriate to discuss with his vascular surgeon this new event, but it may be safer not to do surgery, but the vascular surgical consideration would be a reasonable thing and would be a valuable thought process to further assess him. I think the main issue is if he did not have the significant GI bleed, we would have him on either aspirin and Plavix for a month or antiplatelet and an anticoagulation. Because of his significant GI bleeding, he was not able to be on anticoagulation at least in the past and it would make sense for the hospitalist to discuss with his primary and his relevant specialists whether we can increase the aspirin and Plavix for a month or have him on baby aspirin and anticoagulation, if either of these 2 possibilities would be reasonably safe for him. I will be discussing this with the hospitalist now. Thank you for sharing this case. [id number]/[facility] #: [id number] VINOD
[2018-09-12 23:59] LABS: Troponin I 0.07 ng/mL (<0.04)
[2018-09-13] MEDS: NS 0.9% 1000 ML** 1,000 ML IV SCH ×2 (01:30→17:30)
[2018-09-13] MEDS: Heparin VIAL(*) 5000 UNITS/ML VIAL (FIVE THOUSAND) SUBCUT SCH ×3 (05:59→20:42)
[2018-09-13 06:11] LABS: ABS Basophils 0 10^3/ul (0-0.2); ABS Eosinophils 0.1 10^3/ul (0-0.6); ABS Lymphocytes 0.9 10^3/ul (1.0-4.8); ABS Monocytes 0.9 10^3/ul (0-0.8); ABS Neutrophils 4.8 10^3/ul (1.5-7.7); ABS Nucleated RBC 0 10^3/ul; Eosinophil % 0.9 %; Hematocrit 49 % (36-46); Hemoglobin 16.9 g/dL (14.0-18.0); Lymphocyte % 13.2 %; Mean Corpuscular HGB Conc 34 g/dL (31-36); Mean Corpuscular Hemoglobin 31 pg (27-31); Mean Corpuscular Volume 90 fL (80-94); Mean Platelet Volume 9.5 fL (7.4-10.4); Nucleated Red Blood Cells % 0.1; Platelet Count 153 10^3/uL (150-450); Red Blood Count 5.48 10^6 /uL (4.18-5.48); Red Cell Distribution Width 16 % (10.5-15); White Blood Count 6.6 10^3/uL (3.5-10.8)
[2018-09-13 06:28] LABS: BUN/Creatinine Ratio 18.7 (8-20); Calcium 9.2 mg/dL (8.6-10.3); EGFR African American 79.5 (>60); EGFR Non-African American 65.7 (>60); Potassium 3.7 mmol/L (3.5-5.0)
[2018-09-13] MEDS ORDERED: Aspirin EC TAB* 81 MG TAB.EC PO SCH (07:12)
[2018-09-13] MEDS: Cyanocobalamin TAB* 500 MCG PO SCH (08:56)
[2018-09-13] MEDS: Digoxin TAB* 0.125 MG PO SCH (08:57)
[2018-09-13] MEDS: Aspirin EC TAB* 81 MG TAB.EC PO SCH (08:57)
[2018-09-13] MEDS: Docusate CAP* 100 MG PO SCH ×2 (08:57→20:40)
[2018-09-13] MEDS: Furosemide TAB* 20 MG PO SCH (08:57)
[2018-09-13] MEDS: Atorvastatin* 80 MG TAB PO SCH (08:58)
[2018-09-13] MEDS ORDERED: Perflutren Lipid Microsphere* 3 ML VIAL ONE (10:20)
--- NOTE | 2018-09-13 12:19 | ECHO ---
Patient: ANDRE SANTACRUZ [facility] Rec#: [id number] : 1935 Date: 09/13/2018 Age: 83y Height: 170 cm / 66.9 in Weight: 77 kg / 169.7 lbs Sex: M BSA: 1.88 Room#: 442 Admit Date#: 09/12/2018 Type: Inpatient Referring: Lilly David MD Reading: Ge Kidd MD Clinical Research Manager: Daphne Colby RD,RDMS Transthoracic Echocardiogram Indication: CVA BP: 128/89 HR: 70 Rhythm: A-Fib Findings History: AFIB, COPD, HLD, CHF, CKD, TIA, AAA Technical Comments: The study is technically difficult. The study is technically limited due to the patient's history of COPD. Left Ventricle: The left ventricular chamber size is normal. Moderate to severe concentric left ventricular hypertrophy is observed. Global left ventricular wall motion and contractility are within normal limits. There is normal left ventricular systolic function. The estimated ejection fraction is 55-60%. There is abnormal ventricular septal wall motion consistent with right ventricular pacemaker. The assessment of diastolic function is non-diagnostic. Left Atrium: The left atrium is severely dilated. Right Ventricle: The right ventricle wall thickness is mildly increased. The right ventricular cavity size is normal. The right ventricular global systolic function is normal. A pacemaker wire is visualized in the right ventricle. Right Atrium: The right atrial cavity size is severely dilated. A pacemaker wire is visualized in the right atrium. Aortic Valve: The aortic valve leaflets are moderately thickened. Systolic excursion of the aortic valve cusps is reduced. There is mild aortic regurgitation. There is mild aortic stenosis. The mean gradient of the aortic valve is 13 mmHg. The aortic valve area, by peak velocities, is calculated at 0.9 cm2. Mitral Valve: There is mitral annular calcification. The mitral valve leaflets are mildly thickened. There is no evidence of mitral regurgitation. There is no evidence of mitral stenosis. Tricuspid Valve: The tricuspid valve leaflets are normal. There is mild to moderate tricuspid regurgitation. Unable to estimate the right ventricular systolic pressure. Pulmonic Valve: The pulmonic valve structure is not well visualized. There is no evidence of pulmonic regurgitation. Pericardium: There is no significant pericardial effusion. Aorta: The ascending aorta is not well visualized. There is no dilatation of the aortic arch. The aortic root is normal in size. Pulmonary Artery: The main pulmonary artery is not well visualized. Venous: The inferior vena cava appears normal in size. There is a greater than 50% respiratory change in the inferior vena cava dimension. Contrast: Definity was used to optimize study. A total of 2 ml was used. Conclusions Moderate to severe concentric left ventricular hypertrophy is observed. Global left ventricular wall motion and contractility are within normal limits. The estimated ejection fraction is 55-60%. There is abnormal ventricular septal wall motion consistent with right ventricular pacemaker. The right ventricular global systolic function is normal. A pacemaker wire is visualized in the right ventricle. The aortic valve leaflets are moderately thickened. There is mild aortic regurgitation. There is mild aortic stenosis. The mean gradient of the aortic valve is 13 mmHg. There is no evidence of mitral regurgitation. There is mild to moderate tricuspid regurgitation. Unable to estimate the right ventricular systolic pressure. There is no significant pericardial effusion. Compared to RITA from 07/07/16, the LV function is the same. The Mild AR and are new Measurements Name Value Normal Range RVIDd (AP) 2D 3.3 cm (0.9 - 2.6) RAd ISD 4CH 6 cm (3.4 - 4.9) RA (A4C)W 4.5 cm (2.9 - 4.6) IVSd (2D) 1.7 cm (0.6 - 1) LVPWd (2D) 1.6 cm (0.6 - 1) LVIDd (2D) 4.1 cm (3.6 - 5.4) LVIDs (2D) 3.5 cm - LV FS (2D) 16 % (25 - 45) Aortic Annulus 2.2 cm (1.4 - 2.6) Ao root diameter (2D) 3.4 cm (2.1 - 3.5) Ascending Ao 3.2 cm (2.1 - 3.4) LA dimension (AP) 2D 5.4 cm (2.3 - 3.8) LAd ISD 4CH 6.3 cm (2.9 - 5.3) LA ISD 4CH W 4.1 cm (2.5 - 4.5) Name Value Normal Range LA ESV BP (A/L) index 30 ml/m2 - Name Value Normal Range MV E-wave Vmax 0.9 m/sec - MV deceleration time 118 msec - LV lateral e' Vmax 0.13 m/sec - LV E:e' lateral ratio 7 ratio - Name Value Normal Range AV Vmax 2.4 m/sec - AV VTI 44 cm - AV peak gradient 23 mmHg - AV mean gradient 13 mmHg - LVOT diameter 2.2 cm - LVOT Vmax 0.6 m/sec - LVOT VTI 11 cm - LVOT peak gradient 1.4 mmHg - LVOT mean gradient 1 mmHg - DOI (VTI) 0.3 ratio - AURORA (continuity Vmax) 0.9 cm2 - AURORA (continuity VTI) 0.9 cm2 - Name Value Normal Range RAP 8 mmHg - IVC diameter 1.7 cm -
--- NOTE | 2018-09-13 17:47 | PN ---
Subjective Date of Service: 09/13/18 Interval History: Pt seen and examined. Meds and labs reviewed. CC: N/A ROS: Denied GARCIA/dizziness, F/C, N/V, CP, SOB, increased cough, sputum production , abd pain, diarrhea, constipation, dysuria, myalgias, arthralgias, throat pain , and new skin lesions. The rest of the 14 point ROS are unremarkable. PHYSICAL EXAM: GEN APPEARANCE: Awake, not in acute distress HEENT: NC/AT, PERRLA, moist oral mucosa, (-) throat erythema NECK: Soft, supple, (-) cervical LAD, (-)JVD HEART: S1S2 WNL, RRR, No MRG CHEST: CTA, BL, GAE, No W/R/R ABD: Soft, ND/NT, NABS 4x Q EXT: No C/C/E SKIN: Warm to touch PSYCH: No active psychosis, hallucinations, depression, SI/HI Objective Active Medications: Acetaminophen (Tylenol Tab*) 650 mg PO Q4H PRN PRN Reason: FEVER/PAIN Al Hydrox/Mg Hydrox/Simethicone (Maalox Plus*) 30 ml PO Q6H PRN PRN Reason: INDIGESTION Aspirin (Aspirin Ec Tab*) 81 mg PO DAILY [facility] Last Admin: 09/13/18 08:57 Dose: 81 mg Atorvastatin Calcium (Lipitor*) 80 mg PO DAILY [facility] Last Admin: 09/13/18 08:58 Dose: 80 mg Cyanocobalamin (Vitamin B12 Tab*) 1,000 mcg PO DAILY [facility] Last Admin: 09/13/18 08:56 Dose: 1,000 mcg Digoxin (Lanoxin Tab*) 0.0625 mg PO DAILY [facility] Last Admin: 09/13/18 08:57 Dose: 0.0625 mg Docusate Sodium (Colace Cap*) 100 mg PO BID [facility] Last Admin: 09/13/18 08:57 Dose: 100 mg Furosemide (Lasix Tab*) 10 mg PO DAILY [facility] Last Admin: 09/13/18 08:57 Dose: 10 mg Gabapentin (Neurontin Cap(*)) 1,200 mg PO BEDTIME [facility] Last Admin: 09/12/18 21:29 Dose: 1,200 mg Heparin Sodium (Porcine) (Heparin Vial(*)) 5,000 units SUBCUT Q12H [facility] Hydralazine HCl (Apresoline Iv*) 5 mg IV SLOW PU Q6H PRN PRN Reason: HTN Last Admin: 09/12/18 07:36 Dose: 5 mg Sodium Chloride (Ns 0.9% 1000 Ml) 1,000 mls @ 75 mls/hr IV PER RATE NARESH Last Admin: 09/13/18 17:30 Dose: 75 mls/hr Magnesium Hydroxide (Milk Of Magnesia Liq*) 30 ml PO Q4H PRN PRN Reason: CONSTIPATION Last Admin: 09/13/18 06:07 Dose: 30 ml Vital Signs - 8 hr 09/13/18 09/13/18 09/13/18 10:59 12:39 16:01 Temperature 99.5 F 99.5 F 97.3 F Pulse Rate 73 73 78 Respiratory 16 16 20 Rate Blood Pressure 127/81 127/81 116/76 (mmHg) O2 Sat by Pulse 94 94 94 Oximetry Oxygen Devices in Use Now: None Result Diagrams: 09/13/18 05:37 09/13/18 05:37 Assess/Plan/Problems-Billing Assessment: Pt is an 83yom with PMHx AAA, HTN, AF with PPM/ICD and no anticoag d/t h/o GIB, COPD, TIA, bladder ca, CKD III presents with CP, can't find words. - Patient Problems (1) Chest pain Current Visit: Yes Status: Acute Code(s): R07.9 - CHEST PAIN, UNSPECIFIED SNOMED Code(s): 69638100 Comment: -Resolved -Mildly elevated troponin possibly demand? -2D echo: No wall motion abn; EF 55-60% (2) Word finding difficulty Current Visit: Yes Status: Acute Code(s): R47.89 - OTHER SPEECH DISTURBANCES SNOMED Code(s): 109344468 Comment: -Appreciate Dr. Reed input -Mild right pronator drift and mild aphasia thought to be due to small left temporal CVA -Given multiple risk factors, will discuss w/PCP the possibility of referral to vascular surgeon -Given previous serious GIB -Continue Atorvastatin; pt already on ASA; will touch base with Dr Dewitt in AM to clarify (3) A-fib Current Visit: No Status: Acute Priority: Medium Onset Date: 10/02/14 Code(s): I48.91 - UNSPECIFIED ATRIAL FIBRILLATION SNOMED Code(s): 11797569 Comment: -Continue Digoxin and Diltiazem (4) HTN (hypertension) Current Visit: Yes Status: Acute Code(s): I10 - ESSENTIAL (PRIMARY) HYPERTENSION SNOMED Code(s): 48379529 Comment: -Well-controlled -Continue current regimen (5) DVT prophylaxis Current Visit: Yes Status: Acute Code(s): TWD4685 - SNOMED Code(s): 340982342 Comment: -Will decrease Heparin SQ to q12H given advanced age and previous history of significant GI bleed Status and Disposition: -As above -Possible D/C in 1-2 days
[2018-09-13] MEDS: Gabapentin CAP(*) 400 MG PO SCH (20:40)
[2018-09-14 06:02] LABS: Hematocrit 48 % (36-46); Hemoglobin 16.1 g/dL (14.0-18.0); Mean Corpuscular HGB Conc 34 g/dL (31-36); Mean Corpuscular Hemoglobin 31 pg (27-31); Mean Corpuscular Volume 91 fL (80-94); Mean Platelet Volume 9.7 fL (7.4-10.4); Platelet Count 138 10^3/uL (150-450); Red Blood Count 5.21 10^6 /uL (4.18-5.48); Red Cell Distribution Width 16 % (10.5-15); White Blood Count 7.9 10^3/uL (3.5-10.8)
[2018-09-14 06:23] LABS: Albumin 3.3 g/dL (3.2-5.2); Albumin/Globulin Ratio 1.4 (1-3); BUN/Creatinine Ratio 24.3 (8-20); Calcium 8.8 mg/dL (8.6-10.3); EGFR Non-African American 68.6 (>60); Globulin 2.4 g/dL (2-4); Magnesium 2.1 mg/dL (1.9-2.7); Phosphorus 2.9 mg/dL (2.5-5.0); Total Bilirubin 1.6 mg/dL (0.2-1.0); Total Protein 5.7 g/dL (6.4-8.9)
[2018-09-14] MEDS: Docusate CAP* 100 MG PO SCH (07:38)
[2018-09-14] MEDS: Atorvastatin* 80 MG TAB PO SCH (07:38)
[2018-09-14] MEDS: Cyanocobalamin TAB* 500 MCG PO SCH (07:38)
[2018-09-14] MEDS: Aspirin EC TAB* 81 MG TAB.EC PO SCH (07:38)
[2018-09-14] MEDS: Furosemide TAB* 20 MG PO SCH (07:38)
[2018-09-14] MEDS: Digoxin TAB* 0.125 MG PO SCH (07:38)
[2018-09-14] MEDS: NS 0.9% 1000 ML** 1,000 ML IV SCH (07:39)
[2018-09-14] MEDS: Heparin VIAL(*) 5000 UNITS/ML VIAL (FIVE THOUSAND) SUBCUT SCH (10:26)
--- NOTE | 2018-09-14 14:57 | DS ---
CC: Dr. Lilly David; Dr. Harshad Mejia; Dr. Vladimir Dewitt; Dr. Iliana Malcolm* DISCHARGE SUMMARY: DATE OF ADMISSION: 09/13/18 DATE OF DISCHARGE: 09/14/18 DISCHARGE DIAGNOSES: Are as follows: 1. Small left temporal cerebrovascular accident, causing word finding difficulty with mild right pronator drift and mild aphasia. 2. Chest pain, likely musculoskeletal; reproducible chest pain. Acute coronary syndrome has been ruled out twice. 3. Atrial fibrillation, history of. 4. Hypertension, history of. 5. Mild elevated total bilirubin, asymptomatic, possible Gilbert's syndrome. DISCHARGE CONDITION: Fair. DISCHARGE DISPOSITION: Home. DISCHARGE MEDICATIONS: 1. Aspirin 81 mg p.o. daily. 2. Atorvastatin 80 mg p.o. daily. 3. Cyanocobalamin 1000 mg p.o. daily. 4. Digoxin 0.0625 mg p.o. daily. 5. Colace 200 mg p.o. daily. 6. Lasix 10 mg p.o. daily. 7. Gabapentin 1200 mg p.o. q.h.s. 8. Cholecalciferol 1000 mg p.o. daily. 9. Diltiazem 180 mg p.o. daily. 10. Fenofibrate 160 mg p.o. daily. HISTORY OF PRESENT ILLNESS/HOSPITAL COURSE: The patient is an 83-year-old gentleman, who had been having some chest pain and acute word finding difficulties since 1 day prior to admission and the initial CT of the brain without contrast on presentation showed no acute abnormality. A CT angio of his head and neck reveals stenosis of the left cervical internal carotid artery measuring between 60% to 70%, while the right proximal cervical internal carotid artery measures less than 50%. We could not perform an MRI given his pacemaker. It is not compatible with the MRI machine and given his symptoms, it is quite clear for a small temporal left CVA given his mild pronator drift and mild aphasia. He was seen by Dr. Dewitt for neurology evaluation, who also suggested that a discussion be had with patient's PCP regarding the risks and benefits of readdressing a possible high risk vascular surgery in an otherwise high risk patient versus dual antiplatelet therapy versus one antiplatelet therapy together with anticoagulation. Either of these 3 possibilities has been suggested by Dr. Dewitt to further decrease CVA rates; however, given his significant GI bleed in the past, we will defer disposition between the patient and Dr. Malcolm, the patient's PCP. I discussed this with Dr. Malcolm over the phone and mentioned that we will rediscuss this and follow up with patient and will defer. His aspirin was prescribed daily instead of just Thursday, Thursday, and Thursday and will defer with further future plans with patient's PCP. The patient also was found to have asymptomatic mildly elevated total bilirubin of 2 and when repeated 2 days later, it went down to 1.6. We will defer with Dr. Malcolm to follow total bilirubin levels that is otherwise asymptomatic with normal LFTs, possibly suggesting Gilbert's, but will defer future followup. He was seen by PT/OT who recommended outpatient PT. This was relayed to care coordinators to set up prior to D/C and will defer. The patient had been advised to followup and recall his PCP within 3 days post discharge and discussed risks and benefits of addition of Plavix to his regimen or aspirin with full anticoagulation given his recent stroke. He is also aware of the discussion I had with Dr. Malcolm as stipulated above. He was advised that if his symptoms resume or develop new ones or feel unwell for any reason to call his PCP first and if his PCP cannot entertain him due to scheduling issues alone, he was advised to call [facility] if the issue is considered nonemergent. He was advised to call my office regarding any questions, concerns, or further clarifications regarding his discharge plan and/ or prescriptions to take his medications as prescribed. REVIEW OF SYSTEMS: The patient currently denies any headaches, dizziness, fevers, chills, nausea, vomiting, chest pain, shortness of breath, increased cough and/or sputum production, abdominal pain, diarrhea, constipation, pain and /or increased frequency on urination, myalgias, arthralgias, throat pain or new skin lesions. The rest of the 14-point review of systems are otherwise unremarkable. PHYSICAL EXAMINATION: Shows the most recent vital signs of records with blood pressure of 143/85, 94 beats per minute heart rate, 16 per minute respiratory rate, saturating at 93% on room air, temperature of 99.6 degrees Fahrenheit. General Appearance: The patient is awake, alert and oriented x3, not in acute distress. HEENT: Normocephalic, atraumatic. PERRLA. Extraocular muscles intact. Negative for icterus. Moist oral mucosa. Negative throat erythema. Neck is soft, supple with no cervical lymphadenopathy. No JVD. Heart: S1, S2 within normal limits. Regular rate and rhythm. No murmurs, rubs, or gallops. Chest: Clear to auscultation bilaterally. Good air entry. No wheezes, rales, or rhonchi. Abdomen is soft, nondistended, nontender. Normoactive bowel sounds x4 quadrants. Extremities: No cyanosis, clubbing, or edema. Psychiatric : No active psychosis, depression, suicidal or homicidal ideation. Skin is warm to touch. TIME SPENT: The total time spent evaluating the patient, reviewing pertinent data, and appropriate documentation is 1 hour 5 minutes. [id number]/[facility] #: [id number] MTDIan
[2018-09-14 17:09] VITALS: BP 158/78
== END 2018-09-14 17:50 | disposition home or self-care (01) | DRG 65 ==
LOC: ED 03:27 → MEDTELE 07:01 → OBSVTOIN 09-13 16:30
PROVIDERS: ADMIT Internal Medicine; ATTEND Student in an Organized Health Care Education/Training Program
DX: I63.9 Cerebral infarction, unspecified (principal); I50.32 Chronic diastolic (congestive) heart failure; I13.0 Hypertensive heart and chronic kidney disease with heart failure and stage 1 through stage 4 chronic kidney disease, or unspecified chronic kidney disease; R47.01 Aphasia; J43.9 Emphysema, unspecified; G47.30 Sleep apnea, unspecified; M19.072 Primary osteoarthritis, left ankle and foot; M19.071 Primary osteoarthritis, right ankle and foot; M19.042 Primary osteoarthritis, left hand; E80.4 Gilbert syndrome; M19.041 Primary osteoarthritis, right hand; H91.90 Unspecified hearing loss, unspecified ear; G43.909 Migraine, unspecified, not intractable, without status migrainosus; R40.2362 Coma scale, best motor response, obeys commands, at arrival to emergency department; R40.2142 Coma scale, eyes open, spontaneous, at arrival to emergency department; R40.2252 Coma scale, best verbal response, oriented, at arrival to emergency department; R29.700 NIHSS score 0; K43.9 Ventral hernia without obstruction or gangrene; I65.22 Occlusion and stenosis of left carotid artery; I48.2 Chronic atrial fibrillation; E78.5 Hyperlipidemia, unspecified; G62.9 Polyneuropathy, unspecified; N18.3 Chronic kidney disease, stage 3 (moderate); R07.89 Other chest pain; Z82.5 Family history of asthma and other chronic lower respiratory diseases; Z98.42 Cataract extraction status, left eye; Z98.41 Cataract extraction status, right eye; Z86.73 Personal history of transient ischemic attack (TIA), and cerebral infarction without residual deficits; Z91.040 Latex allergy status; Z85.51 Personal history of malignant neoplasm of bladder; Z95.0 Presence of cardiac pacemaker; Z87.891 Personal history of nicotine dependence; Z83.3 Family history of diabetes mellitus; Z82.3 Family history of stroke; Z79.82 Long term (current) use of aspirin
CPT/HCPCS: 36415; 70450; 70496; 70498; 71275; 74174; 80048; 80053; 80061; 80320; 81003; 81015; 83735; 84100; 84484; 85025; 85027; 85610; 93005; 93306; 99283; A9270-GY; C8929; G0378; G0480; G8978-GP-CI; G8979-GP-CI; G8980-GP-CI; J0360; J1644; Q9967